=== PATIENT | female | born 1980 | race Caucasian/White ===

== ENCOUNTER 2016-07-31 12:06 | Emergency (ER) | payer MEDICARE, MEDICAID ==
[~2016-07-31] VITALS: Ht 167.6 cm; Wt 143.6 kg
[~2016-07-31 12:06] MED LIST: ADV250INH IH; CITA20TA11 PO; INSU100I SUBQ; INSU100I13 SUBQ; OMEP20CA11 PO; PRAV20TA2 PO
[2016-07-31 12:18] VITALS: BP 140/85; PULSE 61; RESP 16; O2SAT 95
[2016-07-31] MEDS ORDERED: SUCR1TAB PO (12:22)
--- NOTE | 2016-07-31 14:30 | ED.REPORT ---
HPI-Extremity Problem Upper Date of Service Jul 31, 2016 ED Provider: Sen Hollingsworth MD 35 year old female presents to the ER complaining of a year of right elbow pain , worsening today. She has been seen for similar in the past and was given a brace which she claims is ineffective. Pain is exacerbated by lifting, and range of motion. Patient does not voice any further medical complaints. Nursing Notes Stated Complaint: RT ELBOW PAIN Chief Complaint: Extremity Trauma Nursing Notes Reviewed: Yes Allergies: Coded Allergies: Sulfa (Sulfonamide Antibiotics) (Verified Allergy, Mild, hives, 07/31/16) Scheduled Citalopram (Citalopram) 20 Mg Tablet 20 MG PO DAILY Insulin Aspart (NovoLOG U-100 Pen) 100 Unit/Ml Insuln.pen 6 UNITS [id number] QAM Insulin Glargine (Lantus U100 Solostar Insulin Pen) 100 Unit/1 Ml Insuln.pen 70 UNITS [id number] QAM Omeprazole (Omeprazole) 20 Mg Capsule.dr 40 MG PO DAILY Pravastatin (Pravastatin) 20 Mg Tablet 20 MG PO HS Sucralfate (Sucralfate) 1 Gm Tablet 1 GM PO QID Scheduled PRN Fluticasone/Salmeterol (Advair 250-50 Diskus) 60 Puff/Inh Disk 1 PUFFS IH DAILY PRN PRN For Wheezing General Time Seen by MD: 14:07 Chief Complaint Elbow injury right Hx Obtained From: Patient Arrived By: Walk-in Onset Occurred: More than a week ago... (>6 months) Symptom Duration: Since onset Caused by: Mechanism unknown Context: Occurred at: Home injury Location: : Elbow right Quality: Painful Severity: Current: Mild Severity: Maximum: Moderate Pertinent Negative: Pt denies other symptoms Exacerbated by: Range of motion, Extension, Movement Pertinent Negative: Relieved by nothing Similar Sx Previous: Yes Past Medical History Past Medical History Notes: PCP: Dr. Melendez Past Medical History Right Tennis Elbow Past Surgical History none reported Smoking History Smoker Current Status UNK Social History Alcohol Use: Denies alcohol use Drug Use: Denies drug use Ambulatory Status Independent Review of Systems Constitutional: Denies: Chills, Fever Musculoskeletal: Reports: Joint pain (Right Elbow), Denies: Back pain, Extremity pain, Lumbar pain, Neck pain, Thoracic pain Complete sys rev & neg: except as marked. Physical Exam Initial Vital Signs Vital Signs (First) Date Time Temp Pulse Resp B/P Pulse Ox O2 Delivery O2 Flow Rate FiO2 07/31/16 12:18 36.4 61 16 140/85 95 Room Air Initial VS: Reviewed General/Constitutional: Well-developed, Well-nourished Head / Eyes: Atraumatic, Normocephalic Neck: Supple, Non-tender, Full range of motion Lower Extremities: Vascular intact, Neuro intact, No swelling, No tenderness Skin: Warm, Dry, No cyanosis Neurologic: Alert, Oriented, Nonfocal Upper Extremity / MS: Full range of motion, Neurologic intact, Vascular intact Right Elbow: Positive: Tenderness present... (Lateral epicondyle) Wrist / Hand: Atraumatic, Inspection NL, Full range of motion, No swelling, No erythema, Non-tender, No deformity, Neurologic intact, Vascular intact, No compartment syndrome, No clubbing/cyanosis Re-Eval/Medical Decision Med Decision/Clinical Course 35-year-old female complaining of right elbow pain times 1 year. She was diagnosed with tennis elbow in the past and had an injection that did not help. She has tenderness over her right lateral epicondyle. Strength is 5 out of 5 right upper extremity is neurovascularly intact. I agree with diagnosis of tennis elbow. She is advised to ice, rice and follow-up with primary doctor for possible injection. Return precautions Given. Re-Evaluation/Progress : Time of Eval: 14:37 Re-Evaluation/Progress Note: Discussed physical examination findings and plan to discharge. Patient is amenable to the plan. Return precautions given. All other questions addressed. Counseled Regarding: Diagnosis, Need for follow-up, When/why to return to ED Discharge & Departure Impression: Primary Impression: Tennis elbow Disposition: Home Discharge Condition All VS Reviewed: Yes Condition: Stable Patient Instructions: Tennis Elbow (DC), Tennis Elbow Exercises (GEN) Additional Instructions: You have Tennis Elbow. Treat with ice three times daily, 20 minutes at a time. Take Tylenol as directed for pain. No heavy lifting. Call your primary care provider to arrange a follow-up appointment if symptoms do not improve. Return to the ER if you develop worsening or uncontrollable pain, or other concerning symptoms. Referrals: Yinka Melendez DO (PCP) Scribe Attestation Portions of this note were transcribed by Ramana Mcginnis. I, Dr. Hollingsworth, personally performed the history, physical exam and medical decision-making; I reviewed and confirmed the accuracy of the information in the transcribed note. Signed by: Qamar Guzman, 07/31/2016 - 14:40 copies to: Yinka Melendez Ben M MD Jul 31, 2016 14:30 RAMANA MCGINNIS Jul 31, 2016 14:35
[2016-07-31 14:45] VITALS: BP 136/82; PULSE 60; RESP 18; O2SAT 96
== END 2016-07-31 14:50 | disposition home or self-care (01) ==
LOC: SED 12:06
DX: M77.11 Lateral epicondylitis, right elbow (principal); Z79.4 Long term (current) use of insulin; Z88.2 Allergy status to sulfonamides

== ENCOUNTER 2016-09-12 19:22 | Emergency (ER) | payer MEDICARE, MEDICAID ==
[~2016-09-12] VITALS: Ht 167.6 cm; Wt 146.8 kg
[~2016-09-12 19:22] MED LIST changes: +SUCR1TAB PO
[2016-09-12 19:24] VITALS: BP 145/87; PULSE 108; RESP 16; O2SAT 96
--- NOTE | 2016-09-12 19:36 | ED.REPORT ---
HPI-General Illness Date of Service Sep 12, 2016 ED Provider: Hiral Alva History of Present Illness: at urgent care this am, given oral decadron this am for breathing treatment. Being treated for pneumonia given prednisone and azithromycin. BS up at 571 when checked earlier. does not have a sliding scale. . Takes metformin 2000 mg a day and novolog 30 units and 70 units lantus and 30 of novolog with every meal and placed on victozia .6 units, andellin is primary care. now bs is 361 Nursing Notes Stated Complaint: HIGH BLOOD SUGAR Chief Complaint: General Complaint Nursing Notes Reviewed: Yes Allergies: Coded Allergies: Sulfa (Sulfonamide Antibiotics) (Verified Allergy, Mild, hives, 09/12/16) Scheduled Citalopram (Citalopram) 20 Mg Tablet 20 MG PO DAILY Insulin Aspart (NovoLOG U-100 Pen) 100 Unit/Ml Insuln.pen 6 UNITS [id number] QAM Insulin Glargine (Lantus U100 Solostar Insulin Pen) 100 Unit/1 Ml Insuln.pen 70 UNITS [id number] QAM Omeprazole (Omeprazole) 20 Mg Capsule.dr 40 MG PO DAILY Pravastatin (Pravastatin) 20 Mg Tablet 20 MG PO HS Sucralfate (Sucralfate) 1 Gm Tablet 1 GM PO QID Scheduled PRN Fluticasone/Salmeterol (Advair 250-50 Diskus) 60 Puff/Inh Disk 1 PUFFS IH DAILY PRN PRN For Wheezing General Time Seen by MD: 19:31 Chief Complaint Other (high blood sugar) Hx Obtained From: Patient Sudden in Onset?: No Past Medical History Past Medical History Notes: PCP: Dr. Melendez Past Medical History Right Tennis Elbow Reports: Diabetes mellitus (since she was 18 years old) Past Surgical History none reported Smoking History Smoker Current Status UNK Social History Alcohol Use: Denies alcohol use Drug Use: Denies drug use Other Social History: Ambulatory Status Independent Review of Systems Full Review of Systems Constitutional: Denies: Fatigue Ears / Nose / Throat: Denies: Ear drainage left, Ear drainage right Cardiovascular: Denies: Chest pain Musculoskeletal: Denies: Back pain Allergy / Immune: Denies: Allergic reaction Physical Exam Vital Signs Vital Signs Date Time Temp Pulse Resp B/P Pulse Ox O2 Delivery O2 Flow Rate FiO2 09/12/16 19:24 36.2 108 16 145/87 96 Room Air Initial VS: Reviewed, Vital signs normal General/Constitutional: Well-developed, Well-nourished Abdomen / GI: Soft, Non-tender, No guarding, No rebound, No distention Psychiatric: Mood/affect normal, Behavior normal, Normal thought content General/Constitutional: Awake, Alert, No acute distress, Well appearing, Well developed, Well hydrated, Well nourished, Cooperative, Not toxic appearing Head / Eyes: Atraumatic, Normocephalic, PERRL, EOMI ENT: Atraumatic, Airway patent, Mucous membranes moist, Pharynx NL Respiratory / Chest: Atraumatic, Breath sounds NL, Breath sounds = bilat, No respiratory distress Cardiovascular: Heart rate NL, Regular rhythm, Heart sounds NL, No gallop Re-Eval/Medical Decision Med Decision/Clinical Course 36 year old female presents to the ER with increase in blood sugar after taking decadron this am for breathing issues. Has a 5 day sourse of prednisone. Patient is reporting breathing better since decadron this am. also with hx of asthma. No sign of COPD or cellulitis. Education proved. Instructed patient to increase humolog. Discharge & Departure Primary Impression: Elevated blood sugar level Disposition: Home Additional Instructions: Your blood sugar is elevated because of the prednisone that you are taking. You also have asthma and pneumonia. Those things can also increase your blood sugar. Increase your novolog to an additional 10 units in the am and 15 units at lunch time and 5 units in the dinner time. It is most important that you test your blood sugar after you take the medication. If you are dropping too much, have a egg salad sandwhich. Please discuss with Dr. Melendez if a glucose monitoring machine that automatically checks your blood sugar would be helpful. As you improve, you will not need the additional insulin. REturn with any concerns. Referrals: Yinka Melendez DO (PCP) EDSupervising Provider for APC: Juan Dudley MD copies to: Yinka Melendez Sue ARNP Sep 12, 2016 19:36
== END 2016-09-12 20:05 | disposition home or self-care (01) ==
LOC: SED 19:22
DX: E11.65 Type 2 diabetes mellitus with hyperglycemia (principal); T38.0X5A Adverse effect of glucocorticoids and synthetic analogues, initial encounter; J45.909 Unspecified asthma, uncomplicated; Z79.4 Long term (current) use of insulin; Z79.84 Long term (current) use of oral hypoglycemic drugs; Z88.2 Allergy status to sulfonamides
CPT/HCPCS: 82948; 94640; 99283; G0463; J7613; J7620

== ENCOUNTER 2016-09-15 11:48 | Inpatient (IN) | payer MEDICARE, MEDICAID ==
[2016-09-15] VITALS (8 sets, daily range): BP systolic 137–146; BP diastolic 73–88; PULSE 75–130; RESP 14–22; O2SAT 94–97
[~2016-09-15] VITALS: Ht 167.6 cm; Wt 143.7 kg
[2016-09-15 12:46] LABS: BASOPHILS % (AUTO) 0.1 % (0-3); EOSINOPHILS % (AUTO) 0.1 % (0-5); Mean Corpuscular Hemoglobin 27.4 pg (27.0-35.0); Mean Corpuscular Volume 81.5 fL (81-100); NEUTROPHILS % (AUTO) 82.7 % (40-74); Platelet Count 236 bil/L (150-400)
--- NOTE | 2016-09-15 12:53 | ED.REPORT ---
HPI-Dyspnea / Wheezing Date of Service Sep 15, 2016 ED Provider: Abimbola Marks MD Patient is a 36-year-old woman with history of asthma, type II diabetes insulin using, hyperlipidemia, anxiety, presents with worsening shortness of breath. She describes having symptoms for at least 3 weeks, she was seen in urgent care 3 days ago with a diagnosed her with pneumonia and mild intermittent asthma exacerbation and prescribed her azithromycin and prednisone which she says she has been taking. Since then she states that her dyspnea has been getting worse. Currently she describes having chest tightness, lightheadedness and dizziness, polyuria, elevated blood sugars up to the 600s, and most recently this morning being in the 400s. She claims to be having to use the bathroom every 10 minutes where she "dribbles" but does not have any pain associated. She denies any fevers, but does say she has chills and cold sweats that are not normal for her. Additionally she states there is orthopnea, which is new over the last 3 weeks. Nursing Notes Stated Complaint: SOB Chief Complaint: Respiratory Distress Allergies: Coded Allergies: Sulfa (Sulfonamide Antibiotics) (Verified Allergy, Mild, hives, 09/12/16) Scheduled Citalopram (Citalopram) 20 Mg Tablet 20 MG PO DAILY Insulin Aspart (NovoLOG U-100 Pen) 100 Unit/Ml Insuln.pen 6 UNITS [id number] QAM Insulin Glargine (Lantus U100 Solostar Insulin Pen) 100 Unit/1 Ml Insuln.pen 70 UNITS [id number] QAM Omeprazole (Omeprazole) 20 Mg Capsule.dr 40 MG PO DAILY Pravastatin (Pravastatin) 20 Mg Tablet 20 MG PO HS Sucralfate (Sucralfate) 1 Gm Tablet 1 GM PO QID Scheduled PRN Fluticasone/Salmeterol (Advair 250-50 Diskus) 60 Puff/Inh Disk 1 PUFFS IH DAILY PRN PRN For Wheezing General Time Seen by MD: 12:07 Chief Complaint Chest pain, Shortness of breath Past Medical History Past Medical History Notes: PCP: Dr. Melendez Past Medical History Menorrhagia with irregular cycle Varicose veins Polycystic ovaries Congenital single renal cyst Intrinsic asthma Suicide and self inflicted injury by cutting Major depressive disorder Migraines Sinusitis Sleep apnea TMJ arthralgia GERD Reports: Diabetes mellitus Past Surgical History Reports: Cholecystectomy Family History Brother has asthma Father renal cyst, hypertension, hyperlipidemia. Mother coronary artery disease Sister with asthma and anxiety Smoking History Current Every Day Smoker (12 PPD x12yrs) Social History Alcohol Use: Denies alcohol use Drug Use: Denies drug use Other Social History: Ambulatory Status Independent Review of Systems Complete sys rev & neg: except as marked. Physical Exam General: Laying in bed, elevated effort to breathe, morbidly obese HEENT: Normocephalic, atraumatic, EOMI grossly, mucous membranes moist, no signs of oral thrush, neck supple without lymphadenopathy, Cardiovascular: Tachycardic, regular rhythm, no clicks murmurs rubs, peripheral pulses 2/4 equal bilaterally Pulmonary: Diffuse moderate-severe inspiratory and expiratory wheeze, scattered rhonchi. Conversational dyspnea. Abdominal: Soft to palpation, bowel sounds present 4, no hepatosplenomegaly. Negative rebound. Extremities: No edema appreciated. No tenderness, asymmetry. No calf tenderness Neuro: Neurologically grossly intact, strength is equal bilaterally upper and lower extremities. MSK: Able to move extremities on their own volition, strength 5 out of 5 equal bilaterally to upper and lower extremities. Initial Vital Signs Vital Signs (First) Date Time Temp Pulse Resp B/P Pulse Ox O2 Delivery O2 Flow Rate FiO2 09/15/16 12:00 36.7 130 22 145/84 95 Room Air 09/15/16 12:29 3 Initial VS: Reviewed Interpretation & Diagnostics Lab Results Interpretation Result Diagram: 09/15/16 1239 09/15/16 1239 Test 09/15/16 12:39 09/15/16 14:15 09/15/16 14:31 White Blood Count 15.0th/mm3 (3.8-10.1) Red Blood Count 5.08mil/mm3 (3.90-5.20) Hemoglobin 13.9g/dL (12.0-15.6) Hematocrit 41.4% (35.0-46.0) Mean Corpuscular Volume 81.5fL (81-100) Mean Corpuscular Hemoglobin 27.4pg (27.0-35.0) Mean Corpuscular Hemoglobin Concent 33.6% (32.0-37.0) Red Cell Distribution Width 13.8% (12.3-15.4) Platelet Count 236bil/L (150-400) Neutrophils (%) (Auto) 82.7% (40-74) Lymphocytes (%) (Auto) 11.8% (14-46) Monocytes (%) (Auto) 5.0% (4-12) Eosinophils (%) (Auto) 0.1% (0-5) Basophils (%) (Auto) 0.1% (0-3) Sodium Level 132mEq/L (134-144) Potassium Level 3.3mEq/L (3.5-5.2) Chloride Level 96mEq/L (97-108) Carbon Dioxide Level 17mmol/L (18-29) Blood Urea Nitrogen 14mg/dL (6-20) Creatinine 0.65mg/dL (0.57-1.00) Estimat Glomerular Filtration Rate 148mL/min (>59) Glucose Level 355mg/dL (60-99) Lactic Acid Level 1.6mmol/L (0.4-2.0) Calcium Level 8.6mg/dL (8.5-10.1) Total Bilirubin 0.2mg/dL (0.0-1.2) Aspartate Amino Transf (AST/SGOT) 12U/L (0-50) Alanine Aminotransferase (ALT/SGPT) 16U/L (0-32) Alkaline Phosphatase 86U/L (25-150) Troponin T < 0.010ug/L (0.0-0.011) Pro-B-Type Natriuretic Peptide 9.12pg/mL (0-130) Total Protein 6.6g/dL (6.4-8.4) Albumin 3.8g/dL (3.4-5.0) Procalcitonin 0.06ng/mL (0.00-0.08) Urine Color Yellow (YELLOW) Urine Appearance Hazy (CLEAR,HAZY) Urine pH 5.5 (5.0-8.0) Urine Specific [place] 1.025 (1.003-1.035) Urine Protein Negativemg/dL (NEG,TRACE) Urine Glucose (UA) 1000mg/dL (NEGATIVE) Urine Ketones 40mg/dL (NEGATIVE) Urine Occult Blood Negative (NEGATIVE) Urine Nitrite Negative (NEGATIVE) Urine Bilirubin Negative (NEGATIVE) Urine Urobilinogen Normalmg/dL (NORMAL) Urine Leukocyte Esterase Negative (NEGATIVE) Urine RBC 0-2/hpf (0-2) Urine WBC 0-5/hpf (0-5) Urine Epithelial Cells Moderate/hpf (NONE-MOD) Urine Crystals None seen (NONE SEEN) Urine Bacteria Moderate/hpf (NONE-FEW) Urine Hyaline Casts None/lpf (NONE) Urine Granular Casts None seen (NONE SEEN) Urine Waxy Casts None seen (NONE SEEN) Urine Red Blood Cell Casts None seen (NONE SEEN) Urine White Blood Cell Casts None seen (NONE SEEN) Urine Mucus None seen (None Seen) Urine Trichomonas None seen (NONE SEEN) Urine Yeast None (NONE SEEN) Urinalysis Comment None Urine Culture Reflexed Indicated Lab Results Interpretation: Leukocytosis with left shift Hyponatremia Hypochloremia Hypokalemia Decreased serum bicarbonate Anion gap 19 Hyperglycemia Negative urine analysis ECG Interpretation ECG Interpretation: Rate 107, sinus tachycardia "Sinus or ectopic atrial tachycardia, repolarization abnormality suggests ischemia, diffuse leads, borderline ST elevation, anterior leads." CT interval 153 QTC 390. Normal axis X-Ray Chest Interpretation Chest Xray Interpretation: IMPRESSION: Negative chest. No acute cardiopulmonary process is evident. Dictated by: Gregg Varela M.D. on 09/15/2016 at 12:26 CT Chest Interpretation IMPRESSION: 1. No pulmonary emboli. 2. Mild bronchial wall thickening and areas of centrilobular groundglass attenuation are suspicious for bronchitis with possible reactive airway disease. Hypersensitivity pneumonitis may also have this appearance. Please correlate clinically. 3. Right lower lobe ground glass nodules. Three-month followup CT of the chest with contrast is recommended. 4. Hepatic steatosis. 5. Rounded area of unusual enhancement within the lateral segment of the left hepatic lobe may represent transient hepatic arterial difference, focal area of fatty sparing, or potentially a liver mass. A dedicated liver MRI or CT with intravenous contrast is recommended. 6. Hyperdense superior left renal cyst is not adequately evaluated. 7. Enlarged spleen. 8. Possible esophagitis. Study type: Chest CT w contrast Interpretation / Wet Read by: Interpret - Radiologist Re-Eval/Medical Decision Med Decision/Clinical Course Patient was evaluated and initial concern was for possible pneumonia, status asthmaticus, bronchitis, viral respiratory infection, pneumonia, pulmonary embolism, myocardial infarction, congestive heart failure, urinary tract infection, and DKA. Evaluation was negative for pulmonary embolism, laboratory results did not suggest bacterial infection, chest x-ray did not show any focus of pneumonia, pro-calcitonin was negative, BNP was very low. CT did reveal signs suspicious for bronchitis with reactive airway disease. Clinically she remained essentially unchanged since presentation after receiving Solu-Medrol, magnesium, IV fluids, ceftriaxone, azithromycin, and DuoNeb. She remained on oxygen while in the emergency department, 3 L, maintaining her in the mid 90s. Given her duration of symptoms, and unresponsiveness to treatment both outpatient and here in the emergency department, decision was made along with the patient to admit her for ongoing management of status asthmaticus. Laboratory findings were discussed with patient, imaging results were discussed with patient and explained, as well as the need for ongoing treatment. Patient stated understanding and agreement. Discharge & Departure Impression: Primary Impression: Respiratory failure Chronicity: acute Respiratory failure complication: hypoxia Qualified Code : J96.01 - Acute respiratory failure with hypoxia Additional Impression: Status asthmaticus, intrinsic Disposition: ADMITTED TO HOSPITAL Discharge Condition All VS Reviewed: Yes Condition: Improved Referrals: Yinka Melendez DO (PCP) Attending Statement 36-year-old woman with increasing asthmatic wheeze as well as orthopnea failing outpatient treatment. Significant inspirational expiration always continues throughout her emergency department stay despite aggressive treatment with fluids nebs and steroids magnesium. At this point has failed outpatient treatment will be admitted for additional asthma management and additional workup to see if underlying etiology can be elucidated no evidence of acute bacterial pneumonia heart failure myocardial infarction or pulmonary embolism at this time. Respiratory viral panel is pending. Agree with documentation as above copies to: Yinka Melendez Noah M DO Sep 15, 2016 12:53 Abimbola Marks MD Sep 15, 2016 16:52
[2016-09-15] MEDS ORDERED: 0.9% Sodium Chloride 1,000 ML IV ONE ×2 (13:01→14:00)
[2016-09-15] MEDS ORDERED: cefTRIAXone Inj 2,000 MG in Dextrose 5% Minibag Plus 50 ML IV ONE (13:05)
[2016-09-15] MEDS ORDERED: Magnesium Sulf 2 Gm/50mL Water 2 GM in IV Premix 1 EACH IV ONE (13:05)
[2016-09-15] MEDS ORDERED: MethylprednisoLONE Sodium Succinate 62.5 mg/mL 2 mL Inj IVPUSH ONE (13:05)
[2016-09-15] MEDS ORDERED: Azithromycin Inj 500 MG in Dextrose 5% w/Vial Mate 250 ML IV ONE (13:05)
--- NOTE | 2016-09-15 13:28 | DRSVH ---
PROCEDURE: X-RAY CHEST, TWO VIEWS ([id number]) INDICATIONS: SHORTNESS OF BREATH TECHNIQUE: 2 views of the chest were acquired. COMPARISON: [facility], CR, XR CHEST 2VW, 08/27/2016, 15:00. FINDINGS: Surgical changes and devices: None. Lungs and pleura: No pleural effusions or pneumothorax. Lungs are clear. Mediastinum: Mediastinal contours are normal. Heart size is normal. Bones and chest wall: No suspicious bony abnormalities. Soft tissues appear unremarkable. IMPRESSION: Negative chest. No acute cardiopulmonary process is evident. Dictated by: Gregg Varela M.D. on 09/15/2016 at 12:26 Approved by: Gregg Varela M.D. on 09/15/2016 at 12:26
[2016-09-15 13:37] LABS: TROPONIN T < 0.010 ug/L (0.0-0.011)
[2016-09-15 15:08] LABS: APPEARANCE,URINE HAZY (CLEAR,HAZY); COLOR,URINE YELLOW (YELLOW); OCCULT BLOOD,URINE NEGATIVE (NEGATIVE); PH,URINE 5.5 (5.0-8.0); UROBILINOGEN,URINE NORMAL (NORMAL)
--- NOTE | 2016-09-15 15:19 | DRSVH ---
PROCEDURE: CT ANGIO CHEST PULMONARY EMBOLISM ([id number]) INDICATIONS: dyspnea TECHNIQUE: After the administration of intravenous contrast, 2 mm thick sections acquired from the pulmonary api lucas to the posterior costophrenic angles. 3-dimensional maximum intensity projection (MIP) coronal a nd sagittal reformats were then acquired through the thorax. For radiation dose reduction, the follo wing was used: automated exposure control, adjustment of mA and/or kV according to patient size. COMPARISON: [facility], CT, ABD/PELVIS W/CON (PNL), 05/07/2010, 19:07. FINDINGS: Image quality: Diagnostic. Pulmonary arteries: Pulmonary arteries are normal in size, and demonstrate no intraluminal filling d efects to suggest central pulmonary embolism. Lungs and pleura: No focal consolidation, effusion, or pneumothorax is present. There is moderate pr ominence of the perihilar bronchial ding. Vague centrilobular ground glass attenuation is appreciat ed within the lung apices. There is no lung mass. There is at least a single ground glass nodule id entified within the posterior right costophrenic angle measuring 5 x 7 mm (image 103, series 4). A s eparate groundglass nodule measuring 4 mm also is present (image 107, series 4). Mediastinum: Heart size is normal, without pericardial effusion. Multiple small mediastinal lymph n odes are present. No shlomo lymphadenopathy is evident. Thoracic aorta is normal in caliber and enha ncement. Mild prominence of the wall of the esophagus is noted. Bones and chest wall: No suspicious bony lesions. Ribs and thoracic spine appear intact throughout. Thyroid gland is not enlarged. No axillary or supraclavicular adenopathy. Abdomen: The imaged portions of the upper abdomen demonstrate multiple cysts involving the upper port ion of the left kidney, not adequately evaluated an exophytic nodular structure along the superior ma rgin of the left kidney measures 2.5 x 1.8 cm, which is slightly larger on the current study and is n oted to demonstrate increased density, measuring approximately 60 Hounsfield units. The liver is hyp odense when compared to the spleen. Within the lateral segment of the left hepatic lobe, there is a rounded vague area of enhancement that measures up to 4.4 cm in diameter. There may be scattered sma ll hepatic cysts. The spleen is enlarged. IMPRESSION: 1. No pulmonary emboli. 2. Mild bronchial wall thickening and areas of centrilobular groundglass attenuation are suspicious for bronchitis with possible reactive airway disease. Hypersensitivity pneumonitis may also have thi s appearance. Please correlate clinically. 3. Right lower lobe ground glass nodules. Three-month followup CT of the chest with contrast is rec ommended. 4. Hepatic steatosis. 5. Rounded area of unusual enhancement within the lateral segment of the left hepatic lobe may repre sent transient hepatic arterial difference, focal area of fatty sparing, or potentially a liver mass. A dedicated liver MRI or CT with intravenous contrast is recommended. 6. Hyperdense superior left renal cyst is not adequately evaluated. 7. Enlarged spleen. 8. Possible esophagitis. Dictated by: Gregg Varela M.D. on 09/15/2016 at 14:03 Approved by: Gregg Varela M.D. on 09/15/2016 at 14:17
[2016-09-15] MEDS ORDERED: Ondansetron 2 mg/mL 2 mL Inj IVPUSH PRN (16:20)
[2016-09-15] MEDS ORDERED: Polyethylene Glycol (PEG) 17 Gm Powder PO PRN (16:20)
[2016-09-15] MEDS ORDERED: Alum-Mag Hydrox-Simeth 30 mL Suspension PO PRN (16:20)
[2016-09-15] MEDS ORDERED: Albuterol-Ipratropium 3 mL Inhalation Solution NEB SCH (16:30)
[2016-09-15] MEDS ORDERED: INSULIN ASPART 6 UNIT SUBCUTA079 SCH (16:50)
[2016-09-15] MEDS ORDERED: Albuterol 2.5 mg/3 mL Inhalation Solution NEB PRN (16:50)
[2016-09-15] MEDS ORDERED: Insulin Human REGular 300 Unit/3 mL Inj SUBQ SCH (17:00)
[2016-09-15] MEDS ORDERED: MELO7.5O PO (17:08)
[2016-09-15] MEDS ORDERED: ACYC400T2 PO (17:08)
[2016-09-15] MEDS ORDERED: OMEP40CA36 PO (17:08)
[2016-09-15] MEDS ORDERED: LIRA0.6P SQ (17:08)
[2016-09-15] MEDS ORDERED: ZIT250 PO (17:08)
[2016-09-15] MEDS ORDERED: PRED50TA PO (17:08)
[2016-09-15] MEDS ORDERED: METF500T4 PO (17:08)
[2016-09-15] MEDS ORDERED: MELO-259 PO (17:10)
[2016-09-15] MEDS ORDERED: ALBU8.5H2 INHALATION (17:10)
[2016-09-15] MEDS: Insulin LISPRO High-Dose Scale SUBQ SCH ×2 (18:27→22:25)
--- NOTE | 2016-09-15 19:35 | PCM.HPMED ---
Subjective Date of Service Sep 15, 2016 Primary Provider: Admitting Physician: Henry Amaya MD Primary Care Physician: Yinka Melendez DO Attending Physician: Henry Amaya MD Admit Status: Full Admit, Admit to Green Team Chief Complaint: Shortness of breath History of Present Illness: The patient is a 36-year-old morbidly obese white female with a history of asthma, type II diabetes mellitus on insulin since 2002, hyperlipidemia and anxiety who began having shortness of breath 3 weeks ago. She went to urgent care 3 days ago and was diagnosed with pneumonia and mild intermittent asthma exacerbation and was prescribed azithromycin and prednisone which she has been taking. He states the prednisone was 50 mg a day which she decided to take and to divided doses because after she took her first 50 mg her sugar shot up to 671. She has been taking azithromycin 250 mg by mouth daily. Since being seen and treated in urgent care she states that her dyspnea had been getting worse. She also described having chest tightness, lightheadedness and dizziness. Patient also has had polyuria, polydipsia and her blood sugars have been in the 400s and 600s. Recently she has been having to use a bathroom every 10 minutes where she "dribbles" but does not have any pain associated with it. She has had urinary tract infections in the past and this feels much different. Patient has no fevers, however she does say that she has had chills and cold sweats that are not normal for her. She also has had some orthopnea which is new over the last 3 weeks. When her shortness of breath got quite severe today she called her primary care doctor who advised her to call 911. Patient called 911 and was taken to [facility] emergency room and was evaluated by Abimbola Alvarez who stated that the patient had increasing asthmatic wheezing as well as orthopnea failing outpatient treatment. Patient had significant respiratory difficulties throughout her emergency department stay despite aggressive treatment with fluids, nebulizers, steroids and magnesium therapies. Therefore, we decided that the patient would be admitted to the hospitalist service for further evaluation and treatment. Review of Systems: General: Patient states that she has always been large since and her mother confirms that she was approximated 10 pound baby. HEENT: Patient has no headache, patient has no diplopia, patient has noticed a change in her vision recently, as it has become more blurry. Patient has no problems with her nose or throat. However, she has had bilateral myringotomy tubes placed approximately ago by Dr. Yinka Wu. Patient has no known dental problems. Patient has no pharyngitis or history of thrush. Patient does have gingivitis. Neck: Patient has no stiffness in the neck. Patient has no lymphadenopathy. Patient has no other problems with their neck. Pulmonary: Patient has increasing shortness of breath as per history of present illness. She has no significant cough, no expectoration of sputum. Patient has no pleurisy. Patient has no chest pain at present time. However, she had some chest pain prior to admission which is now gone away. It was described more as a chest tightness.. Patient has a history of asthma and continues to smoke one half a pack per day. Cardiovascular: Patient has no chest pain at present time. However, patient did have chest tightness prior to admission. Patient has no history of heart murmur. Patient has no palpitations. Patient has no history of myocardial infarction. Patient has no history of coronary artery disease that she is aware of. Gastrointestinal: Patient has no history of hepatitis A, B or C. Patient has no history of peptic ulcer disease. Patient did have some gastric upset caused by meloxicam which she took for "tennis elbow". Patient has no history of gastroesophageal reflux disease. Patient has a history of nausea and vomiting and diarrhea "all night" a couple of nights ago. She has not had any problems since.. Patient has no history of hematemesis, hematochezia, or melena. Patient has no history of colitis. Renal: Patient, and her mother, believe that she has multiple cyst on her kidneys possibly polycystic kidney disease. No history of kidney stones. Genitourinary: Patient has no history of dysuria. However, she does have urinary frequency since her blood sugars have been very high and stress incontinence. Patient has no previous history of genitourinary problems. Musculoskeletal: Patient has no history of muscular skeletal problems. Neurologic: Patient has no history of stroke, no history of seizure, no history of TIA. Psychiatric: Patient has a history of severe depression. She also has had 1 suicide attempt by cutting. She states she is not a "cutter". She no longer has any suicidal ideation. The remainder of the entire review of systems was reviewed with patient and is as mentioned above otherwise negative. Allergies Coded Allergies: Sulfa (Sulfonamide Antibiotics) (Verified Allergy, Mild, hives, 09/12/16) sulfamethoxazole (Verified Allergy, Unknown, 09/15/16) trimethoprim (Verified Allergy, Unknown, 09/15/16) Home Medications Scheduled Citalopram (Citalopram) 20 Mg Tablet 20 MG PO DAILY Insulin Aspart (NovoLOG U-100 Pen) 100 Unit/Ml Insuln.pen 6 UNITS [id number] QAM Insulin Glargine (Lantus U100 Solostar Insulin Pen) 100 Unit/1 Ml Insuln.pen 70 UNITS [id number] QAM Omeprazole (Omeprazole) 20 Mg Capsule.dr 40 MG PO DAILY Pravastatin (Pravastatin) 20 Mg Tablet 20 MG PO HS Sucralfate (Sucralfate) 1 Gm Tablet 1 GM PO QID Scheduled PRN Fluticasone/Salmeterol (Advair 250-50 Diskus) 60 Puff/Inh Disk 1 PUFFS IH DAILY PRN PRN For Wheezing . However, patient states that she is noncompliant with this medication and does not take it. PMH Menorrhagia with irregular cycle Patient is sexually active and is not using any control. She has had one miscarriage and is 1, para 0, M 1 Varicose veins Polycystic ovaries Congenital single renal cyst Intrinsic asthma Suicide and self inflicted injury by cutting Major depressive disorder Migraines Sinusitis and otitis with placement of myringotomy tubes in both ears proximally one year ago by Dr. Yinka Wu. Sleep apnea TMJ arthralgia GERD Diabetes mellitus diagnosed in 1988 and insulin-dependent since 2002 Surgical History Cholecystectomy Skin graft surgery the left index finger at the age of 6. Tendon repair of the right ankle Bilateral myringotomies by Dr. Yinka Wu approximately 1 year ago. Family History Brother has asthma and apparently polycystic disease of the kidneys as well. Father has renal cyst, hypertension, hyperlipidemia. Mother has coronary artery disease Sister has asthma and anxiety Social History Hx Alcohol Use: Yes (The patient drank alcohol prior to being diagnosed with diabetes. However, she did not have a drinking problem.) Hx Substance Use: No Smoking Status: Current Every Day Smoker (The patient continues to smoke one half pack per day despite having asthma.) Living Arrangement: with Family (The patient lives with her mother who is also a diabetic.) Additional Information The patient grew up in [place]. She has smoked marijuana in the past but does not do any currently sees methamphetamine for 6 months but stopped because she saw what it was doing to people. She has had Chlamydia in the past and was treated for it. Patient is 1, para 0, M 1. Patient currently has a boyfriend and is sexually active and is not using any control. Her boyfriend lives in his own place. Patient lives with her mother. Exam Vital Signs Vital Sign - Last Date Time Temp Pulse Resp B/P Pulse Ox O2 Delivery O2 Flow Rate FiO2 09/15/16 17:42 36.7 92 18 138/85 94 Nasal Cannula 2.00 Exam General: Patient is in no apparent distress at present time. She is laying supine with her head elevated approximately 30-45. HEENT: Head is atraumatic and normocephalic. Eyes: Pupils are equally round and reactive to light and accommodation. Extraocular muscles are intact. Sclera are white, anicteric. Subconjunctival mucosa is pink. Ears and nose are unremarkable. Oropharynx: There is no mucosal lesions, there is no thrush, there is no pharyngitis. Neck: Is supple, there are no nodes, or masses or tenderness. Chest: Is clear to auscultation and percussion. There are no rales, rhonchi, wheezes or rubs. Heart: Rate, rhythm is regular. There is no murmur, rub or gallop. Abdomen: Good bowel sounds are present. Abdomen is soft, nontender, no organomegaly or masses were appreciated. Extremities: Are symmetrical and well perfused. There is no edema, there is no cellulitis, no rash. Neurologic: There are no focal neurological deficits. Cranial nerves II through XII are intact. There are no sensory or motor deficits. Psychiatric: Patients mood is calm and shows no sign of agitation. Genital: Deferred Rectal: Deferred Lab and Diagnostics Result Diagram: 09/15/16 1239 09/15/16 1239 Microbiology Urine cultures are pending. X-Rays, CTs and MRIs PROCEDURE: CT ANGIO CHEST PULMONARY EMBOLISM ([id number]) INDICATIONS: dyspnea TECHNIQUE: After the administration of intravenous contrast, 2 mm thick sections acquired from the pulmonary apices to the posterior costophrenic angles. 3-dimensional maximum intensity projection (MIP) coronal and sagittal reformats were then acquired through the thorax. For radiation dose reduction, the following was used: automated exposure control, adjustment of mA and/or kV according to patient size. COMPARISON: [facility], CT, ABD/PELVIS W/CON (PNL), 05/07/2010 , 19:07. FINDINGS: Image quality: Diagnostic. Pulmonary arteries: Pulmonary arteries are normal in size, and demonstrate no intraluminal filling defects to suggest central pulmonary embolism. Lungs and pleura: No focal consolidation, effusion, or pneumothorax is present. There is moderate prominence of the perihilar bronchial ding. Vague centrilobular ground glass attenuation is appreciated within the lung apices. There is no lung mass. There is at least a single ground glass nodule identified within the posterior right costophrenic angle measuring 5 x 7 mm ( image 103, series 4). A separate groundglass nodule measuring 4 mm also is present (image 107, series 4). Mediastinum: Heart size is normal, without pericardial effusion. Multiple small mediastinal lymph nodes are present. No shlomo lymphadenopathy is evident. Thoracic aorta is normal in caliber and enhancement. Mild prominence of the wall of the esophagus is noted. Bones and chest wall: No suspicious bony lesions. Ribs and thoracic spine appear intact throughout. Thyroid gland is not enlarged. No axillary or supraclavicular adenopathy. Abdomen: The imaged portions of the upper abdomen demonstrate multiple cysts involving the upper portion of the left kidney, not adequately evaluated an exophytic nodular structure along the superior margin of the left kidney measures 2.5 x 1.8 cm, which is slightly larger on the current study and is noted to demonstrate increased density, measuring approximately 60 Hounsfield units. The liver is hypodense when compared to the spleen. Within the lateral segment of the left hepatic lobe, there is a rounded vague area of enhancement that measures up to 4.4 cm in diameter. There may be scattered small hepatic cysts. The spleen is enlarged. IMPRESSION: 1. No pulmonary emboli. 2. Mild bronchial wall thickening and areas of centrilobular groundglass attenuation are suspicious for bronchitis with possible reactive airway disease. Hypersensitivity pneumonitis may also have this appearance. Please correlate clinically. 3. Right lower lobe ground glass nodules. Three-month followup CT of the chest with contrast is recommended. 4. Hepatic steatosis. 5. Rounded area of unusual enhancement within the lateral segment of the left hepatic lobe may represent transient hepatic arterial difference, focal area of fatty sparing, or potentially a liver mass. A dedicated liver MRI or CT with intravenous contrast is recommended. 6. Hyperdense superior left renal cyst is not adequately evaluated. 7. Enlarged spleen. 8. Possible esophagitis. Dictated by: Gregg Varela M.D. on 09/15/2016 at 14:03 Approved by: Gregg Varela M.D. on 09/15/2016 at 14:17 PROCEDURE: X-RAY CHEST, TWO VIEWS ([id number]) INDICATIONS: SHORTNESS OF BREATH TECHNIQUE: 2 views of the chest were acquired. COMPARISON: [facility], CR, XR CHEST 2VW, 08/27/2016, 15:00. FINDINGS: Surgical changes and devices: None. Lungs and pleura: No pleural effusions or pneumothorax. Lungs are clear. Mediastinum: Mediastinal contours are normal. Heart size is normal. Bones and chest wall: No suspicious bony abnormalities. Soft tissues appear unremarkable. IMPRESSION: Negative chest. No acute cardiopulmonary process is evident. Dictated by: Gregg Varela M.D. on 09/15/2016 at 12:26 Approved by: Gregg Varela M.D. on 09/15/2016 at 12:26 Assessment & Plan The patient is a 36-year-old morbidly obese white female with a history of asthma, type II diabetes mellitus on insulin since 2002, hyperlipidemia and anxiety who began having shortness of breath 3 weeks ago. She went to urgent care 3 days ago and was diagnosed with pneumonia and mild intermittent asthma exacerbation and was prescribed azithromycin and prednisone which she has been taking. He states the prednisone was 50 mg a day which she decided to take and to divided doses because after she took her first 50 mg her sugar shot up to 671. She has been taking azithromycin 250 mg by mouth daily. Since being seen and treated in urgent care she states that her dyspnea had been getting worse. She also described having chest tightness, lightheadedness and dizziness. Patient also has had polyuria, polydipsia and her blood sugars have been in the 400s and 600s. Recently she has been having to use a bathroom every 10 minutes where she "dribbles" but does not have any pain associated with it. She has had urinary tract infections in the past and this feels much different. Patient has no fevers, however she does say that she has had chills and cold sweats that are not normal for her. She also has had some orthopnea which is new over the last 3 weeks. When her shortness of breath got quite severe today she called her primary care doctor who advised her to call 911. Patient called 911 and was taken to [facility] emergency room and was evaluated by Abimbola Alvarez who stated that the patient had increasing asthmatic wheezing as well as orthopnea failing outpatient treatment. Patient had significant respiratory difficulties throughout her emergency department stay despite aggressive treatment with fluids, nebulizers, steroids and magnesium therapies. Therefore, we decided that the patient would be admitted to the hospitalist service for further evaluation and treatment. # Acute on chronic respiratory failure, present at the time of admission. Active - She has history of asthma and now has an acute exacerbation possibly secondary to bronchitis as suggested by CT scan. - Hypoxia secondary to above - We will continue Rocephin started in the emergency room. - Continue IV azithromycin which was started in the emergency room. - We will change prednisone to Solu-Medrol. 125 mg of Solu-Medrol was given in the emergency room. We will continue Solu-Medrol 60 mg IV every 6 hours. - We will give SVN treatments with DuoNeb SVN every 6 hours and albuterol SVN every 2 hours when necessary. - Magnesium was given in the emergency room. # Type II diabetes mellitus uncontrolled, present at the time of admission. Active and ongoing - This is likely due to prednisone therapy. - We will continue home Lantus insulin and NovoLog will be replaced with Humalog. - We will check blood sugars before meals and at bedtime and provide aggressive sliding scale insulin coverage. - Patient to be on a diabetic diet. # Tobacco use despite active asthma. Present at the time of admission - Patient counseled on the cessation of tobacco. She agrees that she needs to quit. - We will try to quit when she has recovered. # Morbid obesity, present at this time of admission. Ongoing - Patient's BMI is 51.1 kg/m - Encouraged patient to seek possible gastric bypass surgery as an outpatient. - Continue diabetic diet. # Menorrhagia with irregular menstrual cycles - Patient is 1, para 0, M1 - Patient was encouraged to see an HEALTH DIRECTOR doctor for the evaluation of her irregular menses and possibly control. - Possible polycystic ovarian disease. 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 # History of major depression - Patient denies any suicidal ideation at present time. - Patient has a history of suicide attempt by cutting in the past. # Obstructive sleep apnea - Patient is running on having a sleep evaluation on 09/28/2016 Disposition: Patient is expected to be here more than 2 nights further evaluation and treatment of the above problems. Therefore, the patient was admitted as an inpatient. Pain Evaluation: Adequate Pain Control GI Prophylaxis: Proton Pump Inhibitor VTE Prophylaxis: Sub-Q Enoxaparin Resuscitation Status: CPR: Attempt Resuscitation Henry Amaya MD Sep 15, 2016 19:35
[2016-09-15] MEDS: Sucralfate 1,000 mg Tablet PO SCH (19:50)
[2016-09-15] MEDS: Albuterol-Ipratropium 3 mL Inhalation Solution NEB SCH (20:49)
[2016-09-15] MEDS: MethylprednisoLONE Sodium Succinate 62.5 mg/mL 2 mL Inj IVPUSH SCH (22:24)
[2016-09-16] VITALS (13 sets, daily range): BP systolic 125–149; BP diastolic 74–81; PULSE 71–103; RESP 16–22; O2SAT 69–96
[2016-09-16] MEDS: MethylprednisoLONE Sodium Succinate 62.5 mg/mL 2 mL Inj IVPUSH SCH ×3 (04:22→16:43)
[2016-09-16] MEDS: Insulin LISPRO High-Dose Scale SUBQ SCH ×5 (04:22→21:23)
--- NOTE | 2016-09-16 05:53 | NUR ---
Respiratory, Sugars: Pt on 2L NC the beginning of the shift with sats in the upper 90s; CPOX in place for hx of SERINA. RT placed pt on RA and pt has maintained sats 93-95%. Lung sounds wheezy, pt felt breathing was "tight" around 0400 and pt had a PRN neb with improvement in symptoms. Blood sugar at HS 355, insulin per sliding scale. At 0330, sugar was 264; only 2 additional units administered at that time. Viral PCR came back positive for Adenovirus, pt on droplet/contact precautions; pt aware of reason for isolation.
[2016-09-16 06:10] LABS: BASOPHILS % (AUTO) 0.1 % (0-3); EOSINOPHILS % (AUTO) 0 % (0-5); MONOCYTES % (AUTO) 2.5 % (4-12); Mean Corpuscular Hemoglobin 27.4 pg (27.0-35.0); Mean Corpuscular Volume 80.9 fL (81-100); NEUTROPHILS % (AUTO) 85.7 % (40-74); Platelet Count 258 bil/L (150-400)
[2016-09-16] MEDS: Pantoprazole 40 mg ER24 Tablet PO SCH (06:46)
[2016-09-16] MEDS: Sucralfate 1,000 mg Tablet PO SCH ×4 (06:46→21:24)
[2016-09-16 06:50] LABS: Magnesium 2.2 mg/dL (1.6-2.6)
[2016-09-16] MEDS: Albuterol-Ipratropium 3 mL Inhalation Solution NEB SCH ×4 (07:17→20:31)
[2016-09-16] MEDS: Fluticasone-Salmererol 250-50 Inhaler INHALATION PRN (08:56)
[2016-09-16] MEDS: cefTRIAXone Inj 2,000 MG in Dextrose 5% Minibag Plus 50 ML IV SCH (08:57)
[2016-09-16] MEDS: Insulin GLARgine 100 Unit/mL Syringe SUBQ SCH (09:12)
--- NOTE | 2016-09-16 10:14 | DRSVH ---
PROCEDURE: X-RAY CHEST, TWO VIEWS ([id number]) INDICATIONS: [place] Pneumonia vs CHF/Hypoxia TECHNIQUE: 2 views of the chest were acquired. COMPARISON: [facility], CT, CT ANGIO CHEST PE, 09/15/2016, 14:44. [facility] , CR, XR CHEST 2VW, 09/15/2016, 12:59. FINDINGS: Surgical changes and devices: None. Lungs and pleura: No pleural effusions or pneumothorax. Lungs are clear. Mediastinum: Mediastinal contours are normal. Heart size is normal. Bones and chest wall: No suspicious bony abnormalities. Soft tissues appear unremarkable. IMPRESSION: No acute cardiopulmonary disease identified by plain film radiograph. Dictated by: Wallace Mulligan RRA Interpreted: Vikki Salazar MD on 09/16/2016 at 10:12 Transcribed by: TEJA on 09/16/2016 at 10:13 Approved by: Vikki Salazar MD, PhD on 09/16/2016 at 11:28
[2016-09-16] MEDS: Azithromycin Inj 500 MG in Dextrose 5% w/Vial Mate 250 ML IV SCH (10:54)
[2016-09-16] MEDS: 0.9% NaCl + KCl 20 mEq/L 1,000 ML IV SCH ×2 (11:04→21:23)
--- NOTE | 2016-09-16 13:58 | NUR ---
Social Work-initial assessment: Data:See initial assessment. Pt is a 36 y/o female who was admitted on 09/15/16 for status asthmaticus per H&P. Pt's insurance is [employer] and [employer] supplemental and PCP is Yinka Melendez MD. EMR Reviewed. Pt's readmission score is 4-high risk. SW met with pt at bedside to discuss discharge planning, SW role explained. Pt is alert and oriented x3. Pt resides at home with mother Concepcion Arnold in a single level home with ramp to enter where pt remains independent with basic ADLs. Pt uses no DME at baseline and drives POV. Pt has no HH or SNF history. Pt has not completed DPOA/ advanced directive and SW provided paperwork to review and complete. Pt has no [place] [facility] care or [place] benefits. Pt was discussed in rounds and is currently receiving IVABX, will likely be here 2 more days. Pt's mother to provide transport home at discharge. SW provided phone number and plan on white board in room. SW will continue to follow. Assessment:Pt who resides at home with mother and is independent at baseline. Plan:Pt to likely discharge home whe medically stable, rule out IV abx needs. SW will continue to follow. VAHE Jade Addendum: 09/16/16 at 1403 by JW ROBERT SS Amended: Links added.
--- NOTE | 2016-09-16 15:14 | NUR ---
BREATHING/BLOOD SUGARS P- Patient has had hyperglycemia and shortness of breath with activity. Positive for Adenovirus. I- Insulin coverage provided per protocol for BG of 265 and 375, (Patient on IV steroids). Patient given scheduled NEB treatment by RT, on 2L NC E-O2 saturation mid 90's, MD aware of blood sugars, will taper steroids, radiology scheduler in and did nutrition education.
--- NOTE | 2016-09-16 16:43 | NUR ---
spiritual care; pt request brief visit. pt in good spirits, discussed her medical condition and also ways family cares for one another. Feeling much better and expressed she is "doin' okay"
--- NOTE | 2016-09-16 22:44 | PCM.PNMED ---
Subjective Date of Service Sep 16, 2016 Subjective Patient is breathing better when she lies still. However she still gets very short of breath when she is getting up to the bathroom. Overall she is feeling a little bit better. She has no other new complaints. Exam Vital Signs Vital Sign - Last Date Time Temp Pulse Resp B/P Pulse Ox O2 Delivery O2 Flow Rate FiO2 09/16/16 20:43 36.4 103 18 149/78 96 Room Air 09/16/16 13:03 2.00 Intake and Output 09/15/16 09/15/16 09/16/16 Cumulative From/Thru 15:00 23:00 07:00 09/15/16 12:00 - 09/15/16 18:47 Intake Total 1500 ml 400 ml 1900 ml Output Total 200 ml 300 ml 500 ml Balance 1300 ml 100 ml 1400 ml Intake Oral 400 ml 400 ml IV Total 1500 ml 1500 ml Output Urine Total 200 ml 300 ml 500 ml # Voids 1 1 # Bowel Movements 0 0 Exam General: Patient is in no apparent distress at present time. She is laying supine with her head elevated approximately 30-45. HEENT: Head is atraumatic and normocephalic. Eyes: Pupils are equally round and reactive to light and accommodation. Extraocular muscles are intact. Sclera are white, anicteric. Subconjunctival mucosa is pink. Ears and nose are unremarkable. Oropharynx: There is no mucosal lesions, there is no thrush, there is no pharyngitis. Neck: Is supple, there are no nodes, or masses or tenderness. Chest: Is significant for decreased wheezing. However, there is decreased breath sounds bilaterally. Heart: Rate, rhythm is regular. There is no murmur, rub or gallop. Abdomen: Good bowel sounds are present. Abdomen is morbidly obese, soft, nontender, no organomegaly or masses were appreciated. Extremities: Are symmetrical and well perfused. There is no edema, there is no cellulitis, no rash. Neurologic: There are no focal neurological deficits. Cranial nerves II through XII are intact. There are no sensory or motor deficits. Psychiatric: Patients mood is calm and shows no sign of agitation. Genital: Deferred Rectal: Deferred Lab and Diagnostics Result Diagram: 09/16/16 0540 09/16/16 0540 Microbiology Urine cultures are pending. X-Rays, CTs and MRIs PROCEDURE: CT ANGIO CHEST PULMONARY EMBOLISM ([id number]) INDICATIONS: dyspnea TECHNIQUE: After the administration of intravenous contrast, 2 mm thick sections acquired from the pulmonary apices to the posterior costophrenic angles. 3-dimensional maximum intensity projection (MIP) coronal and sagittal reformats were then acquired through the thorax. For radiation dose reduction, the following was used: automated exposure control, adjustment of mA and/or kV according to patient size. COMPARISON: [facility], CT, ABD/PELVIS W/CON (PNL), 05/07/2010 , 19:07. FINDINGS: Image quality: Diagnostic. Pulmonary arteries: Pulmonary arteries are normal in size, and demonstrate no intraluminal filling defects to suggest central pulmonary embolism. Lungs and pleura: No focal consolidation, effusion, or pneumothorax is present. There is moderate prominence of the perihilar bronchial ding. Vague centrilobular ground glass attenuation is appreciated within the lung apices. There is no lung mass. There is at least a single ground glass nodule identified within the posterior right costophrenic angle measuring 5 x 7 mm ( image 103, series 4). A separate groundglass nodule measuring 4 mm also is present (image 107, series 4). Mediastinum: Heart size is normal, without pericardial effusion. Multiple small mediastinal lymph nodes are present. No shlomo lymphadenopathy is evident. Thoracic aorta is normal in caliber and enhancement. Mild prominence of the wall of the esophagus is noted. Bones and chest wall: No suspicious bony lesions. Ribs and thoracic spine appear intact throughout. Thyroid gland is not enlarged. No axillary or supraclavicular adenopathy. Abdomen: The imaged portions of the upper abdomen demonstrate multiple cysts involving the upper portion of the left kidney, not adequately evaluated an exophytic nodular structure along the superior margin of the left kidney measures 2.5 x 1.8 cm, which is slightly larger on the current study and is noted to demonstrate increased density, measuring approximately 60 Hounsfield units. The liver is hypodense when compared to the spleen. Within the lateral segment of the left hepatic lobe, there is a rounded vague area of enhancement that measures up to 4.4 cm in diameter. There may be scattered small hepatic cysts. The spleen is enlarged. IMPRESSION: 1. No pulmonary emboli. 2. Mild bronchial wall thickening and areas of centrilobular groundglass attenuation are suspicious for bronchitis with possible reactive airway disease. Hypersensitivity pneumonitis may also have this appearance. Please correlate clinically. 3. Right lower lobe ground glass nodules. Three-month followup CT of the chest with contrast is recommended. 4. Hepatic steatosis. 5. Rounded area of unusual enhancement within the lateral segment of the left hepatic lobe may represent transient hepatic arterial difference, focal area of fatty sparing, or potentially a liver mass. A dedicated liver MRI or CT with intravenous contrast is recommended. 6. Hyperdense superior left renal cyst is not adequately evaluated. 7. Enlarged spleen. 8. Possible esophagitis. Dictated by: Gregg Varela M.D. on 09/15/2016 at 14:03 Approved by: Gregg Varela M.D. on 09/15/2016 at 14:17 PROCEDURE: X-RAY CHEST, TWO VIEWS ([id number]) INDICATIONS: SHORTNESS OF BREATH TECHNIQUE: 2 views of the chest were acquired. COMPARISON: [facility], CR, XR CHEST 2VW, 08/27/2016, 15:00. FINDINGS: Surgical changes and devices: None. Lungs and pleura: No pleural effusions or pneumothorax. Lungs are clear. Mediastinum: Mediastinal contours are normal. Heart size is normal. Bones and chest wall: No suspicious bony abnormalities. Soft tissues appear unremarkable. IMPRESSION: Negative chest. No acute cardiopulmonary process is evident. Dictated by: Gregg Varela M.D. on 09/15/2016 at 12:26 Approved by: Gregg Varela M.D. on 09/15/2016 at 12:26 PROCEDURE: X-RAY CHEST, TWO VIEWS ([id number]) INDICATIONS: Possibke Pneumonia vs CHF/Hypoxia TECHNIQUE: 2 views of the chest were acquired. COMPARISON: [facility], CT, CT ANGIO CHEST PE, 09/15/2016, 14:44. [facility], CR, XR CHEST 2VW, 09/15/2016, 12:59. FINDINGS: Surgical changes and devices: None. Lungs and pleura: No pleural effusions or pneumothorax. Lungs are clear. Mediastinum: Mediastinal contours are normal. Heart size is normal. Bones and chest wall: No suspicious bony abnormalities. Soft tissues appear unremarkable. IMPRESSION: No acute cardiopulmonary disease identified by plain film radiograph. Dictated by: Wallace NOEL Interpreted: Vikki Salazar MD on 09/16/2016 at 10:12 Transcribed by: TEJA on 09/16/2016 at 10:13 Approved by: Vikki Salazar MD, PhD on 09/16/2016 at 11:28 Assessment & Plan The patient is a 36-year-old morbidly obese white female with a history of asthma, type II diabetes mellitus on insulin since 2002, hyperlipidemia and anxiety who began having shortness of breath 3 weeks ago. She went to urgent care 3 days ago and was diagnosed with pneumonia and mild intermittent asthma exacerbation and was prescribed azithromycin and prednisone which she has been taking. He states the prednisone was 50 mg a day which she decided to take and to divided doses because after she took her first 50 mg her sugar shot up to 671. She has been taking azithromycin 250 mg by mouth daily. Since being seen and treated in urgent care she states that her dyspnea had been getting worse. She also described having chest tightness, lightheadedness and dizziness. Patient also has had polyuria, polydipsia and her blood sugars have been in the 400s and 600s. Recently she has been having to use a bathroom every 10 minutes where she "dribbles" but does not have any pain associated with it. She has had urinary tract infections in the past and this feels much different. Patient has no fevers, however she does say that she has had chills and cold sweats that are not normal for her. She also has had some orthopnea which is new over the last 3 weeks. When her shortness of breath got quite severe today she called her primary care doctor who advised her to call 911. Patient called 911 and was taken to [facility] emergency room and was evaluated by Abimbola Alvarez who stated that the patient had increasing asthmatic wheezing as well as orthopnea failing outpatient treatment. Patient had significant respiratory difficulties throughout her emergency department stay despite aggressive treatment with fluids, nebulizers, steroids and magnesium therapies. Therefore, we decided that the patient would be admitted to the hospitalist service for further evaluation and treatment. # Acute on chronic respiratory failure, present at the time of admission. Active - She has history of asthma and now has an acute exacerbation possibly secondary to bronchitis as suggested by CT scan. - Hypoxia secondary to above - We will continue Rocephin started in the emergency room. - Continue IV azithromycin which was started in the emergency room. - We will change prednisone to Solu-Medrol. 125 mg of Solu-Medrol was given in the emergency room. We will continue Solu-Medrol . However, we will decrease her dose from 60 mg IV every 6 hours to 40 mg IV every 8 hours. - We will give SVN treatments with DuoNeb SVN every 6 hours and albuterol SVN every 2 hours when necessary. - Magnesium was given in the emergency room. # Type II diabetes mellitus uncontrolled, present at the time of admission. Active and ongoing - This is likely due to prednisone therapy. - We will continue home Lantus insulin and NovoLog will be replaced with Humalog. - We will check blood sugars before meals and at bedtime and provide aggressive sliding scale insulin coverage. - Patient to be on a diabetic diet. # Tobacco use despite active asthma. Present at the time of admission - Patient counseled on the cessation of tobacco. She agrees that she needs to quit. - We will try to quit when she has recovered. # Morbid obesity, present at this time of admission. Ongoing - Patient's BMI is 51.1 kg/m - Encouraged patient to seek possible gastric bypass surgery as an outpatient. - Continue diabetic diet. # Menorrhagia with irregular menstrual cycles - Patient is 1, para 0, M1 - Patient was encouraged to see an [facility] doctor for the evaluation of her irregular menses and possibly control. - Possible polycystic ovarian disease. 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 # History of major depression - Patient denies any suicidal ideation at present time. - Patient has a history of suicide attempt by cutting in the past. # Obstructive sleep apnea - Patient is running on having a sleep evaluation on 09/28/2016 Disposition: Patient is legally to be here for another 24-48 hours for the continued evaluation and treatment of the above conditions. Pain Evaluation: Adequate Pain Control GI Prophylaxis: Proton Pump Inhibitor VTE Prophylaxis: Sub-Q Enoxaparin Resuscitation Status: CPR: Attempt Resuscitation Henry Amaya MD Sep 16, 2016 22:44
[2016-09-17] VITALS (10 sets, daily range): BP systolic 135–163; BP diastolic 72–85; PULSE 77–122; RESP 16–24; O2SAT 95–97
[2016-09-17] MEDS: MethylprednisoLONE Sodium Succinate 62.5 mg/mL 2 mL Inj IVPUSH SCH ×3 (00:27→16:54)
[2016-09-17] MEDS: Insulin LISPRO High-Dose Scale SUBQ SCH ×5 (02:59→22:27)
--- NOTE | 2016-09-17 06:29 | NUR ---
respiratory/BG SpO2 in mid 90s on RA even when sleeping. still has SOB with exertion, but pt states it's way better than admit. [employer] at HS. BG at HS wa 411; sliding scale insulin given. 3AM BG was 307; covered with 7 more units of Lispro.
[2016-09-17 06:55] LABS: BASOPHILS % (AUTO) 0.1 % (0-3); EOSINOPHILS % (AUTO) 0.1 % (0-5); MONOCYTES % (AUTO) 5.6 % (4-12); Mean Corpuscular Hemoglobin 27.4 pg (27.0-35.0); Mean Corpuscular Volume 82.1 fL (81-100); NEUTROPHILS % (AUTO) 82.6 % (40-74); Platelet Count 266 bil/L (150-400)
[2016-09-17 07:16] LABS: Magnesium 2.3 mg/dL (1.6-2.6)
[2016-09-17] MEDS: Sucralfate 1,000 mg Tablet PO SCH ×4 (07:16→21:06)
[2016-09-17] MEDS: 0.9% NaCl + KCl 20 mEq/L 1,000 ML IV SCH ×2 (07:16→18:40)
[2016-09-17] MEDS: Pantoprazole 40 mg ER24 Tablet PO SCH (07:16)
[2016-09-17] MEDS: Albuterol-Ipratropium 3 mL Inhalation Solution NEB SCH ×4 (07:38→22:15)
[2016-09-17] MEDS: Insulin GLARgine 100 Unit/mL Syringe SUBQ SCH (08:05)
[2016-09-17] MEDS: Fluticasone-Salmererol 250-50 Inhaler INHALATION PRN (08:10)
[2016-09-17] MEDS: cefTRIAXone Inj 2,000 MG in Dextrose 5% Minibag Plus 50 ML IV SCH (08:34)
[2016-09-17] MEDS: Azithromycin Inj 500 MG in Dextrose 5% w/Vial Mate 250 ML IV SCH (09:24)
--- NOTE | 2016-09-17 16:55 | NUR ---
SW - Readiness for Discharge Data: Pt is on day 2 of hospitalization for status asthmaticus. EMR reviewed. Per morning rounds pt is likely to discharge tomorrow, will finish IVABX tomorrow. Pt will discharge home via family in POV. No further needs assessed at this time. SW will continue to follow. Assessment: Pt who is independent at baseline. Plan: Pt likely to discharge home tomorrow with no needs. SW will continue to follow. VAHE Jade
--- NOTE | 2016-09-17 18:36 | NUR ---
Shift Pt calm and cooperative with care. Pt lungs improving with slight wheezing/rhonci at exertion, pt on RA. Pt now has some productive cough, encourage CDB. PT denies SOB, CP, NVD. Plan is for echo tomorrow and possibly d/c. Pt agreeable to plan, has no further questions/concerns. Call light within reach.
[2016-09-18] VITALS (12 sets, daily range): BP systolic 127–154; BP diastolic 77–87; PULSE 71–128; RESP 16–22; O2SAT 93–98
[2016-09-18] MEDS: 0.9% NaCl + KCl 20 mEq/L 1,000 ML IV SCH ×2 (04:48→17:32)
[2016-09-18] MEDS: Pantoprazole 40 mg ER24 Tablet PO SCH (05:38)
[2016-09-18] MEDS: Sucralfate 1,000 mg Tablet PO SCH ×4 (05:38→22:36)
[2016-09-18 05:49] LABS: BASOPHILS % (AUTO) 0.2 % (0-3); EOSINOPHILS % (AUTO) 0.1 % (0-5); MONOCYTES % (AUTO) 5.9 % (4-12); Mean Corpuscular Hemoglobin 27.3 pg (27.0-35.0); Mean Corpuscular Volume 82.4 fL (81-100); NEUTROPHILS % (AUTO) 76.7 % (40-74); Platelet Count 277 bil/L (150-400)
--- NOTE | 2016-09-18 06:15 | NUR ---
Respiratory Pt remains of RA this shift. Continuous pulse ox while pt asleep. Lung sounds decreased, expiratory wheezes noted. Pt having intermittent productive cough. Call light within reach, frequent rounding.
[2016-09-18 06:24] LABS: Magnesium 2.2 mg/dL (1.6-2.6)
[2016-09-18] MEDS: Fluticasone-Salmererol 250-50 Inhaler INHALATION PRN (07:49)
[2016-09-18] MEDS: predniSONE 20 mg Tablet PO SCH (07:51)
[2016-09-18] MEDS: Insulin GLARgine 100 Unit/mL Syringe SUBQ SCH (07:52)
[2016-09-18] MEDS: Insulin LISPRO High-Dose Scale SUBQ SCH ×4 (07:52→22:00)
[2016-09-18] MEDS: cefTRIAXone Inj 2,000 MG in Dextrose 5% Minibag Plus 50 ML IV SCH (08:43)
[2016-09-18] MEDS: Albuterol-Ipratropium 3 mL Inhalation Solution NEB SCH ×4 (08:45→19:58)
[2016-09-18] MEDS: Azithromycin Inj 500 MG in Dextrose 5% w/Vial Mate 250 ML IV SCH (09:27)
--- NOTE | 2016-09-18 10:38 | NUR ---
Home medications Pt stated she only has albuterol at home for her asthma. She states she uses this daily, every 4 hours. Pt does not have any maintenance asthma medication at this time.
--- NOTE | 2016-09-18 13:29 | NUR ---
Ambulation Pt desire to ambulate and get "fresh" air at approximately 1300. Pt just finished her nebulizer tx. Student nurse accompanied pt while ambulating for observation. Pt started to get SOB after walk, x1 loop in hallway. Pt developed dyspnea and tachy in the 160's. Immediately RN checked O2 sats(96% on RA) and HR in 160's. RN applied supplemental oxygen and monitored pt. Upon resting, pt HR has decreased to 98 and O2 remains at 96%. Oxygen removed. Pt states her headache has returned. Icepack provided for pain. Pt resting now. Pt agreeable to call RN if SOB returns or any difficulties/concerns she may have. Continued to frequently monitor pt.
--- NOTE | 2016-09-18 13:47 | PCM.PNMED ---
Subjective Date of Service Sep 17, 2016 Subjective Patient continues to feel better. Laying at rest however with any exercise she gets extremely short of breath when she is very concerned about this. Her mother at bedside states that she developed heart disease at 36 and wonders if her daughter may have the same thing. She has no other new complaints. Exam Vital Signs Vital Sign - Last Date Time Temp Pulse Resp B/P Pulse Ox O2 Delivery O2 Flow Rate FiO2 09/18/16 12:23 128 22 96 Room Air 09/18/16 11:24 36.5 134/77 09/16/16 13:03 2.00 Intake and Output 09/17/16 09/17/16 09/18/16 Cumulative From/Thru 15:00 23:00 07:00 09/15/16 12:00 - 09/18/16 06:54 Intake Total 2797 ml 1388 ml 00635 ml Output Total 500 ml 400 ml 4530 ml Balance 2297 ml 988 ml 6079 ml Intake Oral 1525 ml 360 ml 4830 ml IV Total 1272 ml 1028 ml 5779 ml Output Urine Total 500 ml 400 ml 4530 ml # Voids 3 # Bowel Movements 2 3 Exam General: Patient appears much more comfortable at rest today.. She is laying supine with her head elevated approximately 30-45. HEENT: Head is atraumatic and normocephalic. Eyes: Pupils are equally round and reactive to light and accommodation. Extraocular muscles are intact. Sclera are white, anicteric. Subconjunctival mucosa is pink. Ears and nose are unremarkable. Oropharynx: There is no mucosal lesions, there is no thrush, there is no pharyngitis. Neck: Is supple, there are no nodes, or masses or tenderness. Chest: Breath sounds are much clearer today. However, there is decreased breath sounds bilaterally. Heart: Rate, rhythm is regular. There is no new murmur, rub or gallop. Abdomen: Good bowel sounds are present. Abdomen is morbidly obese, soft, nontender, no organomegaly or masses were appreciated. Extremities: Are symmetrical and well perfused. There is no edema, there is no cellulitis, no rash. Neurologic: There are no focal neurological deficits. Cranial nerves II through XII are intact. There are no sensory or motor deficits. Psychiatric: Patients mood is calm and shows no sign of agitation. Genital: Deferred Rectal: Deferred Lab and Diagnostics Result Diagram: 09/18/16 [id number] Microbiology Urine cultures are pending. X-Rays, CTs and MRIs PROCEDURE: CT ANGIO CHEST PULMONARY EMBOLISM ([id number]) INDICATIONS: dyspnea TECHNIQUE: After the administration of intravenous contrast, 2 mm thick sections acquired from the pulmonary apices to the posterior costophrenic angles. 3-dimensional maximum intensity projection (MIP) coronal and sagittal reformats were then acquired through the thorax. For radiation dose reduction, the following was used: automated exposure control, adjustment of mA and/or kV according to patient size. COMPARISON: [facility], CT, ABD/PELVIS W/CON (PNL), 05/07/2010 , 19:07. FINDINGS: Image quality: Diagnostic. Pulmonary arteries: Pulmonary arteries are normal in size, and demonstrate no intraluminal filling defects to suggest central pulmonary embolism. Lungs and pleura: No focal consolidation, effusion, or pneumothorax is present. There is moderate prominence of the perihilar bronchial ding. Vague centrilobular ground glass attenuation is appreciated within the lung apices. There is no lung mass. There is at least a single ground glass nodule identified within the posterior right costophrenic angle measuring 5 x 7 mm ( image 103, series 4). A separate groundglass nodule measuring 4 mm also is present (image 107, series 4). Mediastinum: Heart size is normal, without pericardial effusion. Multiple small mediastinal lymph nodes are present. No shlomo lymphadenopathy is evident. Thoracic aorta is normal in caliber and enhancement. Mild prominence of the wall of the esophagus is noted. Bones and chest wall: No suspicious bony lesions. Ribs and thoracic spine appear intact throughout. Thyroid gland is not enlarged. No axillary or supraclavicular adenopathy. Abdomen: The imaged portions of the upper abdomen demonstrate multiple cysts involving the upper portion of the left kidney, not adequately evaluated an exophytic nodular structure along the superior margin of the left kidney measures 2.5 x 1.8 cm, which is slightly larger on the current study and is noted to demonstrate increased density, measuring approximately 60 Hounsfield units. The liver is hypodense when compared to the spleen. Within the lateral segment of the left hepatic lobe, there is a rounded vague area of enhancement that measures up to 4.4 cm in diameter. There may be scattered small hepatic cysts. The spleen is enlarged. IMPRESSION: 1. No pulmonary emboli. 2. Mild bronchial wall thickening and areas of centrilobular groundglass attenuation are suspicious for bronchitis with possible reactive airway disease. Hypersensitivity pneumonitis may also have this appearance. Please correlate clinically. 3. Right lower lobe ground glass nodules. Three-month followup CT of the chest with contrast is recommended. 4. Hepatic steatosis. 5. Rounded area of unusual enhancement within the lateral segment of the left hepatic lobe may represent transient hepatic arterial difference, focal area of fatty sparing, or potentially a liver mass. A dedicated liver MRI or CT with intravenous contrast is recommended. 6. Hyperdense superior left renal cyst is not adequately evaluated. 7. Enlarged spleen. 8. Possible esophagitis. Dictated by: Gregg Varela M.D. on 09/15/2016 at 14:03 Approved by: Gregg aVrela M.D. on 09/15/2016 at 14:17 PROCEDURE: X-RAY CHEST, TWO VIEWS ([id number]) INDICATIONS: SHORTNESS OF BREATH TECHNIQUE: 2 views of the chest were acquired. COMPARISON: [facility], CR, XR CHEST 2VW, 08/27/2016, 15:00. FINDINGS: Surgical changes and devices: None. Lungs and pleura: No pleural effusions or pneumothorax. Lungs are clear. Mediastinum: Mediastinal contours are normal. Heart size is normal. Bones and chest wall: No suspicious bony abnormalities. Soft tissues appear unremarkable. IMPRESSION: Negative chest. No acute cardiopulmonary process is evident. Dictated by: Gregg Varela M.D. on 09/15/2016 at 12:26 Approved by: Gregg Varela M.D. on 09/15/2016 at 12:26 PROCEDURE: X-RAY CHEST, TWO VIEWS ([id number]) INDICATIONS: Possibke Pneumonia vs CHF/Hypoxia TECHNIQUE: 2 views of the chest were acquired. COMPARISON: [facility], CT, CT ANGIO CHEST PE, 09/15/2016, 14:44. [facility], CR, XR CHEST 2VW, 09/15/2016, 12:59. FINDINGS: Surgical changes and devices: None. Lungs and pleura: No pleural effusions or pneumothorax. Lungs are clear. Mediastinum: Mediastinal contours are normal. Heart size is normal. Bones and chest wall: No suspicious bony abnormalities. Soft tissues appear unremarkable. IMPRESSION: No acute cardiopulmonary disease identified by plain film radiograph. Dictated by: Wallace Mulligan A Interpreted: Vikki Salazar MD on 09/16/2016 at 10:12 Transcribed by: TEJA on 09/16/2016 at 10:13 Approved by: Vikki Salazar MD, PhD on 09/16/2016 at 11:28 Assessment & Plan The patient is a 36-year-old morbidly obese white female with a history of asthma, type II diabetes mellitus on insulin since 2002, hyperlipidemia and anxiety who began having shortness of breath 3 weeks ago. She went to urgent care 3 days ago and was diagnosed with pneumonia and mild intermittent asthma exacerbation and was prescribed azithromycin and prednisone which she has been taking. He states the prednisone was 50 mg a day which she decided to take and to divided doses because after she took her first 50 mg her sugar shot up to 671. She has been taking azithromycin 250 mg by mouth daily. Since being seen and treated in urgent care she states that her dyspnea had been getting worse. She also described having chest tightness, lightheadedness and dizziness. Patient also has had polyuria, polydipsia and her blood sugars have been in the 400s and 600s. Recently she has been having to use a bathroom every 10 minutes where she "dribbles" but does not have any pain associated with it. She has had urinary tract infections in the past and this feels much different. Patient has no fevers, however she does say that she has had chills and cold sweats that are not normal for her. She also has had some orthopnea which is new over the last 3 weeks. When her shortness of breath got quite severe today she called her primary care doctor who advised her to call 911. Patient called 911 and was taken to [facility] emergency room and was evaluated by Abimbola Alvarez who stated that the patient had increasing asthmatic wheezing as well as orthopnea failing outpatient treatment. Patient had significant respiratory difficulties throughout her emergency department stay despite aggressive treatment with fluids, nebulizers, steroids and magnesium therapies. Therefore, we decided that the patient would be admitted to the hospitalist service for further evaluation and treatment. # Acute on chronic respiratory failure, present at the time of admission. Active - She has history of asthma and now has an acute exacerbation possibly secondary to bronchitis as suggested by CT scan. Respiratory PCR panel was positive for adenovirus so I suspect patient has an adenovirus infection plus or minus a secondary bacterial infection as patient appears to be responding to IV antibiotics and failed high-dose oral prednisone at home - Hypoxia secondary to above - We will continue Rocephin started in the emergency room. - Continue IV azithromycin which was started in the emergency room. - We have changed prednisone to Solu-Medrol. 125 mg of Solu-Medrol was given in the emergency room. We will continue Solu-Medrol through today . However, we will decrease her dose from 60 mg IV every 6 hours to 40 mg IV every 8 hours. Then we will start prednisone 30 mg by mouth every morning on 09/18/2016 - We will continue SVN treatments with DuoNeb SVN every 6 hours and albuterol SVN every 2 hours when necessary. - Magnesium was given in the emergency room. # Dyspnea with exertion - Patient and patient's mother concerned this could be cardiac in nature in addition to the above - We will check echocardiogram in a.m. # Type II diabetes mellitus uncontrolled, present at the time of admission. Active and ongoing now better controlled with tapering doses of steroids - This is likely due to prednisone and Solu-Medrol therapy. - We will continue home Lantus insulin and NovoLog will be replaced with Humalog. - We will check blood sugars before meals and at bedtime and provide aggressive sliding scale insulin coverage. - Patient to be on a diabetic diet. # Tobacco use despite active asthma. Present at the time of admission - Patient counseled on the cessation of tobacco. She agrees that she needs to quit. - We will try to quit when she has recovered. # Morbid obesity, present at this time of admission. Ongoing - Patient's BMI is 51.1 kg/m - Encouraged patient to seek possible gastric bypass surgery as an outpatient. - Continue diabetic diet. # Menorrhagia with irregular menstrual cycles - Patient is 1, para 0, M1 - Patient was encouraged to see an [employer] [facility] doctor for the evaluation of her irregular menses and possibly control. - Possible polycystic ovarian disease. 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 # History of major depression - Patient denies any suicidal ideation at present time. - Patient has a history of suicide attempt by cutting in the past. # Obstructive sleep apnea - Patient is running on having a sleep evaluation on 09/28/2016 Disposition: Patient is legally to be here for another 24-48 hours for the continued evaluation and treatment of the above conditions. Pain Evaluation: Adequate Pain Control GI Prophylaxis: Proton Pump Inhibitor VTE Prophylaxis: Sub-Q Enoxaparin Resuscitation Status: CPR: Attempt Resuscitation Henry Amaya MD Sep 18, 2016 13:47
--- NOTE | 2016-09-18 17:50 | DRSVH ---
[facility] [address] [place] [address] Echocardiogram Report Name: AVINASH FREEMAN te: 09/18/2016 Height: 66 in Hospital Exam Location: [facility] Weight: 317 lb Gender: Female BSA: 2.4 m2 : 1980 Age: 36 yrs BP: 148/ 87 mmHg Reason For Study: SOB Ordering Physician: HOSPITALIST [facility] Performed By: Quinton Camacho Referring Physician: RICA PEREZ Interpretation Summary The left ventricle is normal in size, wall thickness, and systolic function without any focal wall motion abnormalities with the ejection fraction visually estimated to be 65-70%. Assessment of diastolic parameters indicates normal left ventricular diastolic function and normal filling pressures. The right ventricle is not well visualized but grossly appears normal in size with probable normal systolic function. Pulmonary artery pressures cannot be estimated because of the lack of a measurable TR jet velocity but the IVC suggests a low right atrial pressure of 3 mm Hg. Both atria are normal in size. There is no obvious significant valvular heart disease. Procedure: A two-dimensional transthoracic echocardiogram with color flow and Doppler was performed. The study quality was technically adequate. There is no prior echocardiogram noted for this patient. The patient was in normal sinus rhythm during the exam. Left Ventricle: The left ventricle is normal in size, wall thickness, and systolic function without any focal wall motion abnormalities. The ejection fraction is estimated to be 65-70%. Assessment of diastolic parameters indicates normal left ventricular diastolic function and normal filling pressures. Right Ventricle: The right ventricle is not well visualized. The right ventricle grossly appears normal in size with probable normal systolic function. Atria: Both atria are normal in size. The interatrial septum is intact with no evidence for an atrial septal defect. Mitral Valve: The mitral valve is grossly normal. There is no mitral regurgitation noted. Aortic Valve: The aortic valve is grossly normal. The aortic valve opens well. No aortic regurgitation is present. Tricuspid Valve: The tricuspid valve is normal. There is a trace or physiologic amount of tricuspid regurgitation. Pulmonary artery pressures cannot be estimated because of the lack of a measurable TR jet velocity. Pulmonic Valve: The pulmonic valve is not well seen, but is grossly normal. There is a trace or physiologic amount of pulmonic regurgitation. There is no significant valvular heart disease. Great Vessels: The aortic root is normal size. The dimensions of the ascending aorta are normal. The pulmonary artery is normal size. The IVC is of normal diameter and collapses greater than 50% with a sniff. This suggests a low right atrial pressure of 3 mm Hg. Pericardium/ Pleura There is no pericardial effusion. There is no pleural effusion. MMode/2D Measurements & Calculations LVIDd: 5.1 cm LA dimension: 2.3 cm RA long axis LVOT diam: 2.2 cm LVIDs: 3.3 cm Ao root diam FS: 36.3 % LA A2 area: 18.3 cm RA area EPSS: 0.55 cm LA A4 area: 19.5 cm asc Aorta Diam IVSd: 0.87 cm LA length (vol) : 11.8 cm LVPWd: 0.98 cm RA vol Ao Arch Diam (Prox LA vol: 64.4 ml : 25.9 ml Trans): 2.8 cm LA vol index RA : 10.6 mm2 : 26.5 ml/m2 LV ricketts. diameter/BSA LV sys. diameter/BSA TAPSE: 2.0 cm (cm/m^2): 2.1 (cm/m^2): 1.3 Doppler Measurements & Calculations Ao V2 max: 146.7 cm/secMV E max junaid MV E/A: 1.2 PA V2 max Ao max P.6 mmHg : 86.4 cm/sec Med Peak E' Junaid : 105.3 cm/sec Ao mean P.9 mmHg MV A max junaid PA mean PG LVOT Max Junaid : 70.3 cm/sec E/E' med: 11.0 : 2.3 mmHg : 120.7 cm/sec Lat Peak E' Junaid MEGHANN(I,D): 3.5 cm E/E' lat: 8.9 sev ratio: 0.91 E/e' average MV dec time: 0.15 sec Ao V2 mean LV V1 max PG PA V2 mean : 92.7 cm/sec : 70.0 cm/sec Ao V2 VTI LV V1 VTI: 22.5 cmPA pr(Accel) : -0.85 mmHg MEGHANN(V,D): 3.1 cm2 MEGHANN indexed to BSA (cm^2/m^2): 1.4 Reading Physician:05:50 PM
--- NOTE | 2016-09-18 18:41 | NUR ---
shift Pt continues to receive nebs for breathing. Pt has difficulty breathing with exertion, sats 96% on RA monitored via tele. Pt becomes SOB and tachycardic with walking/activity/exertion. Pt tearful during episodes, offered reassurance and comfort. Pt has frequent headaches, treating with cold wash cloth and tylenol. Pt received echo today and she is anxious to hear the results. Continue to monitor frequently, call light with in reach.
--- NOTE | 2016-09-18 23:53 | PCM.PNMED ---
Subjective Date of Service Sep 18, 2016 Subjective Patient states he tried to ambulate in the hallway today and became extremely short of breath fatigued her heart rate was found to be at 160. She is now exhausted and has a headache does not feel well. She still gets extremely short of breath just getting out of bed to the bathroom. She has not had her echocardiogram as of yet that was ordered today. Exam Vital Signs Vital Sign - Last Date Time Temp Pulse Resp B/P Pulse Ox O2 Delivery O2 Flow Rate FiO2 09/18/16 20:11 36.8 89 18 154/84 94 Room Air 09/16/16 13:03 2.00 Intake and Output 09/17/16 09/17/16 09/18/16 Cumulative From/Thru 15:00 23:00 07:00 09/15/16 12:00 - 09/18/16 06:54 Intake Total 2797 ml 1388 ml 06844 ml Output Total 500 ml 400 ml 4530 ml Balance 2297 ml 988 ml 6079 ml Intake Oral 1525 ml 360 ml 4830 ml IV Total 1272 ml 1028 ml 5779 ml Output Urine Total 500 ml 400 ml 4530 ml # Voids 3 # Bowel Movements 2 3 Exam General: Patient appears ill today after taking a walk.. She is laying supine with her head elevated approximately 30-45 and does not appear to be well.. HEENT: Head is atraumatic and normocephalic. Eyes: Pupils are equally round and reactive to light and accommodation. Extraocular muscles are intact. Sclera are white, anicteric. Subconjunctival mucosa is pink. Ears and nose are unremarkable. Oropharynx: There is no mucosal lesions, there is no thrush, there is no pharyngitis. Neck: Is supple, there are no nodes, or masses or tenderness. Chest: Breath sounds remain diminished with scattered diffuse expiratory wheezing. Heart: Rate, rhythm is regular. There is no new murmur, rub or gallop. Abdomen: Good bowel sounds are present. Abdomen is morbidly obese, soft, nontender, no organomegaly or masses were appreciated. Extremities: Are symmetrical and well perfused. There is no edema, there is no cellulitis, no rash. Neurologic: There are no focal neurological deficits. Cranial nerves II through XII are intact. There are no sensory or motor deficits. Psychiatric: Patients mood is calm and shows no sign of agitation. Genital: Deferred Rectal: Deferred Lab and Diagnostics Result Diagram: 09/18/[id number]/16529 Microbiology Urine cultures are pending. X-Rays, CTs and MRIs PROCEDURE: CT ANGIO CHEST PULMONARY EMBOLISM ([id number]) INDICATIONS: dyspnea TECHNIQUE: After the administration of intravenous contrast, 2 mm thick sections acquired from the pulmonary apices to the posterior costophrenic angles. 3-dimensional maximum intensity projection (MIP) coronal and sagittal reformats were then acquired through the thorax. For radiation dose reduction, the following was used: automated exposure control, adjustment of mA and/or kV according to patient size. COMPARISON: [facility], CT, ABD/PELVIS W/CON (PNL), 05/07/2010 , 19:07. FINDINGS: Image quality: Diagnostic. Pulmonary arteries: Pulmonary arteries are normal in size, and demonstrate no intraluminal filling defects to suggest central pulmonary embolism. Lungs and pleura: No focal consolidation, effusion, or pneumothorax is present. There is moderate prominence of the perihilar bronchial ding. Vague centrilobular ground glass attenuation is appreciated within the lung apices. There is no lung mass. There is at least a single ground glass nodule identified within the posterior right costophrenic angle measuring 5 x 7 mm ( image 103, series 4). A separate groundglass nodule measuring 4 mm also is present (image 107, series 4). Mediastinum: Heart size is normal, without pericardial effusion. Multiple small mediastinal lymph nodes are present. No shlomo lymphadenopathy is evident. Thoracic aorta is normal in caliber and enhancement. Mild prominence of the wall of the esophagus is noted. Bones and chest wall: No suspicious bony lesions. Ribs and thoracic spine appear intact throughout. Thyroid gland is not enlarged. No axillary or supraclavicular adenopathy. Abdomen: The imaged portions of the upper abdomen demonstrate multiple cysts involving the upper portion of the left kidney, not adequately evaluated an exophytic nodular structure along the superior margin of the left kidney measures 2.5 x 1.8 cm, which is slightly larger on the current study and is noted to demonstrate increased density, measuring approximately 60 Hounsfield units. The liver is hypodense when compared to the spleen. Within the lateral segment of the left hepatic lobe, there is a rounded vague area of enhancement that measures up to 4.4 cm in diameter. There may be scattered small hepatic cysts. The spleen is enlarged. IMPRESSION: 1. No pulmonary emboli. 2. Mild bronchial wall thickening and areas of centrilobular groundglass attenuation are suspicious for bronchitis with possible reactive airway disease. Hypersensitivity pneumonitis may also have this appearance. Please correlate clinically. 3. Right lower lobe ground glass nodules. Three-month followup CT of the chest with contrast is recommended. 4. Hepatic steatosis. 5. Rounded area of unusual enhancement within the lateral segment of the left hepatic lobe may represent transient hepatic arterial difference, focal area of fatty sparing, or potentially a liver mass. A dedicated liver MRI or CT with intravenous contrast is recommended. 6. Hyperdense superior left renal cyst is not adequately evaluated. 7. Enlarged spleen. 8. Possible esophagitis. Dictated by: Gregg Varela M.D. on 09/15/2016 at 14:03 Approved by: Gregg Varela M.D. on 09/15/2016 at 14:17 PROCEDURE: X-RAY CHEST, TWO VIEWS ([id number]) INDICATIONS: SHORTNESS OF BREATH TECHNIQUE: 2 views of the chest were acquired. COMPARISON: [facility], CR, XR CHEST 2VW, 08/27/2016, 15:00. FINDINGS: Surgical changes and devices: None. Lungs and pleura: No pleural effusions or pneumothorax. Lungs are clear. Mediastinum: Mediastinal contours are normal. Heart size is normal. Bones and chest wall: No suspicious bony abnormalities. Soft tissues appear unremarkable. IMPRESSION: Negative chest. No acute cardiopulmonary process is evident. Dictated by: Gregg Varela M.D. on 09/15/2016 at 12:26 Approved by: Gregg Varela M.D. on 09/15/2016 at 12:26 PROCEDURE: X-RAY CHEST, TWO VIEWS ([id number]) INDICATIONS: Possibke Pneumonia vs CHF/Hypoxia TECHNIQUE: 2 views of the chest were acquired. COMPARISON: [facility], CT, CT ANGIO CHEST PE, 09/15/2016, 14:44. [facility], CR, XR CHEST 2VW, 09/15/2016, 12:59. FINDINGS: Surgical changes and devices: None. Lungs and pleura: No pleural effusions or pneumothorax. Lungs are clear. Mediastinum: Mediastinal contours are normal. Heart size is normal. Bones and chest wall: No suspicious bony abnormalities. Soft tissues appear unremarkable. IMPRESSION: No acute cardiopulmonary disease identified by plain film radiograph. Dictated by: Wallace Mulligan A Interpreted: Vikki Salazar MD on 09/16/2016 at 10:12 Transcribed by: TEJA on 09/16/2016 at 10:13 Approved by: Vikki Salazar MD, PhD on 09/16/2016 at 11:28 Cardiac Echo Impressions Echocardiogram Report Name: AVINASH FREEMAN Da te: 09/18/2016 Height: 66 in Hospital Exam Location: [facility] Weight: 317 lb Gender: Female BSA: 2.4 m2 : 1980 Age: 36 yrs BP: 148/ 87 mmHg Reason For Study: SOB Ordering Physician: HOSPITALIST [facility] Performed By: Quinton Camacho Referring Physician: HENRY AMAYA Interpretation Summary The left ventricle is normal in size, wall thickness, and systolic function without any focal wall motion abnormalities with the ejection fraction visually estimated to be 65-70%. Assessment of diastolic parameters indicates normal left ventricular diastolic function and normal filling pressures. The right ventricle is not well visualized but grossly appears normal in size with probable normal systolic function. Pulmonary artery pressures cannot be estimated because of the lack of a measurable TR jet velocity but the IVC suggests a low right atrial pressure of 3 mm Hg. Both atria are normal in size. There is no obvious significant valvular heart disease. Assessment & Plan The patient is a 36-year-old morbidly obese white female with a history of asthma, type II diabetes mellitus on insulin since 2002, hyperlipidemia and anxiety who began having shortness of breath 3 weeks ago. She went to urgent care 3 days ago and was diagnosed with pneumonia and mild intermittent asthma exacerbation and was prescribed azithromycin and prednisone which she has been taking. He states the prednisone was 50 mg a day which she decided to take and to divided doses because after she took her first 50 mg her sugar shot up to 671. She has been taking azithromycin 250 mg by mouth daily. Since being seen and treated in urgent care she states that her dyspnea had been getting worse. She also described having chest tightness, lightheadedness and dizziness. Patient also has had polyuria, polydipsia and her blood sugars have been in the 400s and 600s. Recently she has been having to use a bathroom every 10 minutes where she "dribbles" but does not have any pain associated with it. She has had urinary tract infections in the past and this feels much different. Patient has no fevers, however she does say that she has had chills and cold sweats that are not normal for her. She also has had some orthopnea which is new over the last 3 weeks. When her shortness of breath got quite severe today she called her primary care doctor who advised her to call 911. Patient called 911 and was taken to [facility] emergency room and was evaluated by Abimbola Alvarez who stated that the patient had increasing asthmatic wheezing as well as orthopnea failing outpatient treatment. Patient had significant respiratory difficulties throughout her emergency department stay despite aggressive treatment with fluids, nebulizers, steroids and magnesium therapies. Therefore, we decided that the patient would be admitted to the hospitalist service for further evaluation and treatment. # Acute on chronic respiratory failure, present at the time of admission. Active - She has history of asthma and now has an acute exacerbation possibly secondary to bronchitis as suggested by CT scan. Respiratory PCR panel was positive for adenovirus, so I suspect patient has an adenovirus infection, plus or minus a secondary bacterial infection. As patient appears to be responding to IV antibiotics and failed high-dose oral prednisone at home - Hypoxia secondary to above - We will continue Rocephin started in the emergency room. - Continue IV azithromycin which was started in the emergency room. - We have changed prednisone to Solu-Medrol. 125 mg of Solu-Medrol was given in the emergency room. We decreased her dose from 60 mg IV every 6 hours to 40 mg IV every 8 hours. Then we started prednisone 30 mg by mouth every morning on 09/18/2016 - We will continue SVN treatments with DuoNeb SVN every 6 hours and albuterol SVN every 2 hours when necessary. - Magnesium was given in the emergency room. # Dyspnea with exertion quite severe with heart rate jumping up to 160 today with exertion and the hallway. Patient felt quite ill afterward. - Patient and patient's mother concerned this could be cardiac in nature in addition to the above - Echocardiogram fails to show any explanation for the dyspnea on exertion. Therefore, I believe it is due to the current pulmonary infection with exacerbation of asthma. # Type II diabetes mellitus uncontrolled, present at the time of admission. Active and ongoing now better controlled with tapering doses of steroids - This is likely due to prednisone and Solu-Medrol therapy. This will improve with tapering doses of steroids. - We will continue home Lantus insulin and NovoLog will be replaced with Humalog. - We will check blood sugars before meals and at bedtime and provide aggressive sliding scale insulin coverage. - Patient to be on a diabetic diet. # Tobacco use despite active asthma. Present at the time of admission - Patient counseled on the cessation of tobacco. She agrees that she needs to quit. - We will try to quit when she has recovered. # Morbid obesity, present at this time of admission. Ongoing - Patient's BMI is 51.1 kg/m - Encouraged patient to seek possible gastric bypass surgery as an outpatient. - Continue diabetic diet. # Menorrhagia with irregular menstrual cycles - Patient is 1, para 0, M1 - Patient was encouraged to see an [facility] doctor for the evaluation of her irregular menses and possibly control. - Possible polycystic ovarian disease. 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 # History of major depression - Patient denies any suicidal ideation at present time. - Patient has a history of suicide attempt by cutting in the past. # Obstructive sleep apnea - Patient is running on having a sleep evaluation on 09/28/2016 Disposition: Patient is legally to be here for another 24 hours for the continued evaluation and treatment of the above conditions. Pain Evaluation: Adequate Pain Control GI Prophylaxis: Proton Pump Inhibitor VTE Prophylaxis: Sub-Q Enoxaparin Resuscitation Status: CPR: Attempt Resuscitation Henry Amaya MD Sep 18, 2016 23:53
[2016-09-19] VITALS (7 sets, daily range): BP systolic 124–133; BP diastolic 64–77; PULSE 70–103; RESP 16–18; O2SAT 95–97
[2016-09-19] MEDS: 0.9% NaCl + KCl 20 mEq/L 1,000 ML IV SCH (05:54)
[2016-09-19 05:58] LABS: BASOPHILS % (AUTO) 0.1 % (0-3); EOSINOPHILS % (AUTO) 0.6 % (0-5); Mean Corpuscular Hemoglobin 27.8 pg (27.0-35.0); Mean Corpuscular Volume 82.4 fL (81-100); NEUTROPHILS % (AUTO) 55.3 % (40-74); Platelet Count 252 bil/L (150-400)
[2016-09-19] MEDS: Pantoprazole 40 mg ER24 Tablet PO SCH (05:59)
[2016-09-19] MEDS: Sucralfate 1,000 mg Tablet PO SCH ×2 (05:59→11:44)
--- NOTE | 2016-09-19 06:30 | NUR ---
Respiratory Pt lung sounds course, pt having productive cough, green and blood tinged sputum noted this AM. Pt remains on RA, oxygen sat in the 90's. No c/o SOB. Pt sleeping most of shift.
[2016-09-19] MEDS: Albuterol-Ipratropium 3 mL Inhalation Solution NEB SCH ×2 (07:19→11:29)
[2016-09-19] MEDS: Insulin LISPRO High-Dose Scale SUBQ SCH ×2 (08:00→12:27)
[2016-09-19] MEDS: Fluticasone-Salmererol 250-50 Inhaler INHALATION PRN (08:57)
[2016-09-19] MEDS: Insulin GLARgine 100 Unit/mL Syringe SUBQ SCH (08:58)
[2016-09-19] MEDS: predniSONE 20 mg Tablet PO SCH (08:59)
[2016-09-19] MEDS: cefTRIAXone Inj 2,000 MG in Dextrose 5% Minibag Plus 50 ML IV SCH (09:02)
[2016-09-19] MEDS: Azithromycin Inj 500 MG in Dextrose 5% w/Vial Mate 250 ML IV SCH (09:53)
--- NOTE | 2016-09-19 12:26 | PCM.DIMED ---
Discharge Instructions Date of Service Sep 19, 2016 Dates of Hospitalization Sep 15, 2016 at 16:59 Discharge Diagnosis Discharge Diagnosis Adenovirus Infection with Acute on Chronic Asthma with Bronchitis Diet Heart Healthy, Diabetic Activity No restrictions (The patient may resume usual activities gradually as tolerated) Call your provider Fever or Chills, Shortness of breath, Bleeding, Chest pain, Vomitting, Excessive diarrhea, Weakness (unilateral) Patient Instructions Follow-up Provider: Yinka Melendez DO Follow-up with PCP in: 1 week Henry Amaya MD Sep 19, 2016 12:26
[2016-09-19] MEDS ORDERED: CEFD300C3 PO (12:42)
[2016-09-19] MEDS ORDERED: IPRA3AMP NEB (12:42)
[2016-09-19] MEDS ORDERED: ADV250INH IH (12:42)
[2016-09-19] MEDS ORDERED: PRD5T PO (12:42)
--- NOTE | 2016-09-19 13:09 | NUR ---
Discharge Patient given discharge orders. Patient given medication list with written when next dose due. Patient IV removed fully intact and asymptomatic. Patient given informational packets and follow up instructions. Assisted in wheelchair to main entrance.
--- NOTE | 2016-09-20 01:02 | PCM.DC.MED ---
Discharge Summary Date of Service Sep 19, 2016 Dates of Hospitalization Date of Hospital Admission Sep 15, 2016 at 16:59 Date of Discharge: Sep 19, 2016 Providers: Admitting Physician: Henry Amaya MD Primary Care Physician: Yinka Melendez DO Attending Physician: Henry Amaya MD Diagnosis at Time of Discharge Diagnosis at Time of Discharge Adenovirus Infection with Acute on Chronic Asthma with Bronchitis Procedures XRay, CTs & MRIs PROCEDURE: CT ANGIO CHEST PULMONARY EMBOLISM ([id number]) INDICATIONS: dyspnea TECHNIQUE: After the administration of intravenous contrast, 2 mm thick sections acquired from the pulmonary apices to the posterior costophrenic angles. 3-dimensional maximum intensity projection (MIP) coronal and sagittal reformats were then acquired through the thorax. For radiation dose reduction, the following was used: automated exposure control, adjustment of mA and/or kV according to patient size. COMPARISON: [facility], CT, ABD/PELVIS W/CON (PNL), 05/07/2010 , 19:07. FINDINGS: Image quality: Diagnostic. Pulmonary arteries: Pulmonary arteries are normal in size, and demonstrate no intraluminal filling defects to suggest central pulmonary embolism. Lungs and pleura: No focal consolidation, effusion, or pneumothorax is present. There is moderate prominence of the perihilar bronchial ding. Vague centrilobular ground glass attenuation is appreciated within the lung apices. There is no lung mass. There is at least a single ground glass nodule identified within the posterior right costophrenic angle measuring 5 x 7 mm ( image 103, series 4). A separate groundglass nodule measuring 4 mm also is present (image 107, series 4). Mediastinum: Heart size is normal, without pericardial effusion. Multiple small mediastinal lymph nodes are present. No shlomo lymphadenopathy is evident. Thoracic aorta is normal in caliber and enhancement. Mild prominence of the wall of the esophagus is noted. Bones and chest wall: No suspicious bony lesions. Ribs and thoracic spine appear intact throughout. Thyroid gland is not enlarged. No axillary or supraclavicular adenopathy. Abdomen: The imaged portions of the upper abdomen demonstrate multiple cysts involving the upper portion of the left kidney, not adequately evaluated an exophytic nodular structure along the superior margin of the left kidney measures 2.5 x 1.8 cm, which is slightly larger on the current study and is noted to demonstrate increased density, measuring approximately 60 Hounsfield units. The liver is hypodense when compared to the spleen. Within the lateral segment of the left hepatic lobe, there is a rounded vague area of enhancement that measures up to 4.4 cm in diameter. There may be scattered small hepatic cysts. The spleen is enlarged. IMPRESSION: 1. No pulmonary emboli. 2. Mild bronchial wall thickening and areas of centrilobular groundglass attenuation are suspicious for bronchitis with possible reactive airway disease. Hypersensitivity pneumonitis may also have this appearance. Please correlate clinically. 3. Right lower lobe ground glass nodules. Three-month followup CT of the chest with contrast is recommended. 4. Hepatic steatosis. 5. Rounded area of unusual enhancement within the lateral segment of the left hepatic lobe may represent transient hepatic arterial difference, focal area of fatty sparing, or potentially a liver mass. A dedicated liver MRI or CT with intravenous contrast is recommended. 6. Hyperdense superior left renal cyst is not adequately evaluated. 7. Enlarged spleen. 8. Possible esophagitis. Dictated by: Gregg Varela M.D. on 09/15/2016 at 14:03 Approved by: Gregg Varela M.D. on 09/15/2016 at 14:17 PROCEDURE: X-RAY CHEST, TWO VIEWS ([id number]) INDICATIONS: SHORTNESS OF BREATH TECHNIQUE: 2 views of the chest were acquired. COMPARISON: [facility], CR, XR CHEST 2VW, 08/27/2016, 15:00. FINDINGS: Surgical changes and devices: None. Lungs and pleura: No pleural effusions or pneumothorax. Lungs are clear. Mediastinum: Mediastinal contours are normal. Heart size is normal. Bones and chest wall: No suspicious bony abnormalities. Soft tissues appear unremarkable. IMPRESSION: Negative chest. No acute cardiopulmonary process is evident. Dictated by: Gregg Varela M.D. on 09/15/2016 at 12:26 Approved by: Gregg Varela M.D. on 09/15/2016 at 12:26 PROCEDURE: X-RAY CHEST, TWO VIEWS ([id number]) INDICATIONS: Possibke Pneumonia vs CHF/Hypoxia TECHNIQUE: 2 views of the chest were acquired. COMPARISON: [facility], CT, CT ANGIO CHEST PE, 09/15/2016, 14:44. [facility], CR, XR CHEST 2VW, 09/15/2016, 12:59. FINDINGS: Surgical changes and devices: None. Lungs and pleura: No pleural effusions or pneumothorax. Lungs are clear. Mediastinum: Mediastinal contours are normal. Heart size is normal. Bones and chest wall: No suspicious bony abnormalities. Soft tissues appear unremarkable. IMPRESSION: No acute cardiopulmonary disease identified by plain film radiograph. Dictated by: Wallace Mulligan RRA Interpreted: Vikki Salazar MD on 09/16/2016 at 10:12 Transcribed by: TEJA on 09/16/2016 at 10:13 Approved by: Vikki Salazar MD, PhD on 09/16/2016 at 11:28 Cardiac Echo Impression Echocardiogram Report Name: AVINASH FREEMAN Da te: 09/18/2016 Height: 66 in Hospital Exam Location: [facility] Weight: 317 lb Gender: Female BSA: 2.4 m2 : 1980 Age: 36 yrs BP: 148/ 87 mmHg Reason For Study: SOB Ordering Physician: [facility]PITALIST [facility] Performed By: Quinton Camacho Referring Physician: HENRY AMAYA Interpretation Summary The left ventricle is normal in size, wall thickness, and systolic function without any focal wall motion abnormalities with the ejection fraction visually estimated to be 65-70%. Assessment of diastolic parameters indicates normal left ventricular diastolic function and normal filling pressures. The right ventricle is not well visualized but grossly appears normal in size with probable normal systolic function. Pulmonary artery pressures cannot be estimated because of the lack of a measurable TR jet velocity but the IVC suggests a low right atrial pressure of 3 mm Hg. Both atria are normal in size. There is no obvious significant valvular heart disease. Brief History The patient is a 36-year-old morbidly obese white female with a history of asthma, type II diabetes mellitus on insulin since 2002, hyperlipidemia and anxiety who began having shortness of breath 3 weeks ago. She went to urgent care 3 days ago and was diagnosed with pneumonia and mild intermittent asthma exacerbation and was prescribed azithromycin and prednisone which she has been taking. He states the prednisone was 50 mg a day which she decided to take and to divided doses because after she took her first 50 mg her sugar shot up to 671. She has been taking azithromycin 250 mg by mouth daily. Since being seen and treated in urgent care she states that her dyspnea had been getting worse. She also described having chest tightness, lightheadedness and dizziness. Patient also has had polyuria, polydipsia and her blood sugars have been in the 400s and 600s. Recently she has been having to use a bathroom every 10 minutes where she "dribbles" but does not have any pain associated with it. She has had urinary tract infections in the past and this feels much different. Patient has no fevers, however she does say that she has had chills and cold sweats that are not normal for her. She also has had some orthopnea which is new over the last 3 weeks. When her shortness of breath got quite severe today she called her primary care doctor who advised her to call 911. Patient called 911 and was taken to [facility] emergency room and was evaluated by Abimbola Alvarez who stated that the patient had increasing asthmatic wheezing as well as orthopnea failing outpatient treatment. Patient had significant respiratory difficulties throughout her emergency department stay despite aggressive treatment with fluids, nebulizers, steroids and magnesium therapies. Therefore, we decided that the patient would be admitted to the hospitalist service for further evaluation and treatment. Hospital Course The patient is a 36-year-old morbidly obese white female with a history of asthma, type II diabetes mellitus on insulin since 2002, hyperlipidemia and anxiety who began having shortness of breath 3 weeks ago. She went to urgent care 3 days ago and was diagnosed with pneumonia and mild intermittent asthma exacerbation and was prescribed azithromycin and prednisone which she has been taking. He states the prednisone was 50 mg a day which she decided to take and to divided doses because after she took her first 50 mg her sugar shot up to 671. She has been taking azithromycin 250 mg by mouth daily. Since being seen and treated in urgent care she states that her dyspnea had been getting worse. She also described having chest tightness, lightheadedness and dizziness. Patient also has had polyuria, polydipsia and her blood sugars have been in the 400s and 600s. Recently she has been having to use a bathroom every 10 minutes where she "dribbles" but does not have any pain associated with it. She has had urinary tract infections in the past and this feels much different. Patient has no fevers, however she does say that she has had chills and cold sweats that are not normal for her. She also has had some orthopnea which is new over the last 3 weeks. When her shortness of breath got quite severe today she called her primary care doctor who advised her to call 911. Patient called 911 and was taken to [facility] emergency room and was evaluated by Abimbola Alvarez who stated that the patient had increasing asthmatic wheezing as well as orthopnea failing outpatient treatment. Patient had significant respiratory difficulties throughout her emergency department stay despite aggressive treatment with fluids, nebulizers, steroids and magnesium therapies. Therefore, we decided that the patient would be admitted to the hospitalist service for further evaluation and treatment. # Acute on chronic respiratory failure, present at the time of admission. Active - She has history of asthma and now has an acute exacerbation possibly secondary to bronchitis as suggested by CT scan. Respiratory PCR panel was positive for adenovirus, so I suspect patient has an adenovirus infection, plus or minus a secondary bacterial infection. As patient appears to be responding to IV antibiotics and failed high-dose oral prednisone at home - Hypoxia secondary to above - We will continue Rocephin started in the emergency room. - Continue IV azithromycin which was started in the emergency room. - We have changed prednisone to Solu-Medrol. 125 mg of Solu-Medrol was given in the emergency room. We decreased her dose from 60 mg IV every 6 hours to 40 mg IV every 8 hours. Then we started prednisone 30 mg by mouth every morning on 09/18/2016 - We will continue SVN treatments with DuoNeb SVN every 6 hours and albuterol SVN every 2 hours when necessary. - Magnesium was given in the emergency room. # Dyspnea with exertion quite severe with heart rate jumping up to 160 today with exertion and the hallway. Patient felt quite ill afterward. - Patient and patient's mother concerned this could be cardiac in nature in addition to the above - Echocardiogram fails to show any explanation for the dyspnea on exertion. Therefore, I believe it is due to the current pulmonary infection with exacerbation of asthma. # Type II diabetes mellitus uncontrolled, present at the time of admission. Active and ongoing now better controlled with tapering doses of steroids - This is likely due to prednisone and Solu-Medrol therapy. This will improve with tapering doses of steroids. - We will continue home Lantus insulin and NovoLog will be replaced with Humalog. - We will check blood sugars before meals and at bedtime and provide aggressive sliding scale insulin coverage. - Patient to be on a diabetic diet. # Tobacco use despite active asthma. Present at the time of admission - Patient counseled on the cessation of tobacco. She agrees that she needs to quit. - We will try to quit when she has recovered. # Morbid obesity, present at this time of admission. Ongoing - Patient's BMI is 51.1 kg/m - Encouraged patient to seek possible gastric bypass surgery as an outpatient. - Continue diabetic diet. # Menorrhagia with irregular menstrual cycles - Patient is 1, para 0, M1 - Patient was encouraged to see an [employer] doctor for the evaluation of her irregular menses and possibly control. - Possible polycystic ovarian disease. 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 # History of major depression - Patient denies any suicidal ideation at present time. - Patient has a history of suicide attempt by cutting in the past. # Obstructive sleep apnea - Patient is running on having a sleep evaluation on 09/28/2016 Disposition: Patient is legally to be here for another 24 hours for the continued evaluation and treatment of the above conditions. Exam Vital Signs (Last) Date Time Temp Pulse Resp B/P Pulse Ox O2 Delivery O2 Flow Rate FiO2 09/19/16 11:30 92 18 96 Room Air 09/19/16 09:09 36.6 124/77 09/16/16 13:03 2.00 Exam General: Patient appears ill today after taking a walk.. She is laying supine with her head elevated approximately 30-45 and does not appear to be well.. HEENT: Head is atraumatic and normocephalic. Eyes: Pupils are equally round and reactive to light and accommodation. Extraocular muscles are intact. Sclera are white, anicteric. Subconjunctival mucosa is pink. Ears and nose are unremarkable. Oropharynx: There is no mucosal lesions, there is no thrush, there is no pharyngitis. Neck: Is supple, there are no nodes, or masses or tenderness. Chest: Patient is moving air in her lungs much better with decreased wheezing and breath sounds are much clearer. Heart: Rate, rhythm is regular. There is no new murmur, rub or gallop. Abdomen: Good bowel sounds are present. Abdomen is morbidly obese, soft, nontender, no organomegaly or masses were appreciated. Extremities: Are symmetrical and well perfused. There is no edema, there is no cellulitis, no rash. Neurologic: There are no focal neurological deficits. Cranial nerves II through XII are intact. There are no sensory or motor deficits. Psychiatric: Patients mood is calm and shows no sign of agitation. Genital: Deferred Rectal: Deferred Test 09/15/16 12:39 09/15/16 14:15 09/15/16 14:31 09/16/16 05:40 Hemoglobin A1c 9.2% (4.8-5.6) Lactic Acid Level 1.6mmol/L (0.4-2.0) Troponin T < 0.010ug/L (0.0-0.011) Urine Opiates Screen Negative Urine Methadone Screen Negative Urine Barbiturates Screen Negative Urine Amphetamines Screen Negative Urine Benzodiazepines Screen Negative Urine Cocaine Metabolite Screen Negative Urine Cannabinoids Screen Positive Urine Color Yellow (YELLOW) Urine Appearance Hazy (CLEAR,HAZY) Urine pH 5.5 (5.0-8.0) Urine Specific [place] 1.025 (1.003-1.035) Urine Protein Negativemg/dL (NEG,TRACE) Urine Glucose (UA) 1000mg/dL (NEGATIVE) Urine Ketones 40mg/dL (NEGATIVE) Urine Occult Blood Negative (NEGATIVE) Urine Nitrite Negative (NEGATIVE) Urine Bilirubin Negative (NEGATIVE) Urine Urobilinogen Normalmg/dL (NORMAL) Urine Leukocyte Esterase Negative (NEGATIVE) Urine RBC 0-2/hpf (0-2) Urine WBC 0-5/hpf (0-5) Urine Epithelial Cells Moderate/hpf (NONE-MOD) Urine Crystals None seen (NONE SEEN) Urine Bacteria Moderate/hpf (NONE-FEW) Urine Hyaline Casts None/lpf (NONE) Urine Granular Casts None seen (NONE SEEN) Urine Waxy Casts None seen (NONE SEEN) Urine Red Blood Cell Casts None seen (NONE SEEN) Urine White Blood Cell Casts None seen (NONE SEEN) Urine Mucus None seen (None Seen) Urine Trichomonas None seen (NONE SEEN) Urine Yeast None (NONE SEEN) Urinalysis Comment None Urine Culture Reflexed Indicated Urine HCG, Qualitative Negative (Negative) Pro-B-Type Natriuretic Peptide 53.05pg/mL (0-130) Procalcitonin 0.08ng/mL (0.00-0.08) Test 09/19/16 05:30 White Blood Count 14.1th/mm3 (3.8-10.1) Red Blood Count 4.67mil/mm3 (3.90-5.20) Hemoglobin 13.0g/dL (12.0-15.6) Hematocrit 38.5% (35.0-46.0) Mean Corpuscular Volume 82.4fL (81-100) Mean Corpuscular Hemoglobin 27.8pg (27.0-35.0) Mean Corpuscular Hemoglobin Concent 33.8% (32.0-37.0) Red Cell Distribution Width 14.1% (12.3-15.4) Platelet Count 252bil/L (150-400) Neutrophils (%) (Auto) 55.3% (40-74) Lymphocytes (%) (Auto) 35.4% (14-46) Monocytes (%) (Auto) 7.0% (4-12) Eosinophils (%) (Auto) 0.6% (0-5) Basophils (%) (Auto) 0.1% (0-3) Sodium Level 138mEq/L (134-144) Potassium Level 3.8mEq/L (3.5-5.2) Chloride Level 102mEq/L (97-108) Carbon Dioxide Level 21mmol/L (18-29) Blood Urea Nitrogen 13mg/dL (6-20) Creatinine 0.56mg/dL (0.57-1.00) Estimat Glomerular Filtration Rate 175mL/min (>59) Glucose Level 115mg/dL (60-99) Calcium Level 8.3mg/dL (8.5-10.1) Magnesium Level 2.0mg/dL (1.6-2.6) Total Bilirubin 0.2mg/dL (0.0-1.2) Aspartate Amino Transf (AST/SGOT) 11U/L (0-50) Alanine Aminotransferase (ALT/SGPT) 19U/L (0-32) Alkaline Phosphatase 71U/L (25-150) Total Protein 5.7g/dL (6.4-8.4) Albumin 3.7g/dL (3.4-5.0) Microbiology Results Urine cultures are pending. Discharge Medications Discharge Medications Acyclovir (Acyclovir) 400 Mg Tablet 400 MG PO QAM (Reported) Azithromycin (Zithromax) 250 Mg Tablet 250 MG PO DAILY (Reported) Cefdinir (Cefdinir) 300 Mg Capsule 300 MG PO BID Prescribed by: KARIME AMAYA MD Citalopram (Citalopram) 20 Mg Tablet 20 MG PO QAM (Reported) Fluticasone/Salmeterol (Advair 250-50 Diskus) 60 Puff/Inh Disk 1 PUFFS IH BID Prescribed by: KARIME AMAYA MD Insulin Aspart (NovoLOG U-100 Pen) 100 Unit/Ml Insuln.pen 30 UNITS SUBQ TIDWM ( Reported) Insulin Glargine (Lantus U100 Solostar Insulin Pen) 100 Unit/1 Ml Insuln.pen 70 UNITS SUBQ QAM (Reported) Ipratropium/Albuterol Sulfate (Iprat-Albut 0.5-3(2.5) mg/3 mL Inhalant Soln) 3 Ml Ampul.neb 3 ML NEB QIDRT Prescribed by: KARIME AMAYA MD Metformin (Metformin) 500 Mg Tablet 1,000 MG PO BIDWM (Reported) Omeprazole (Omeprazole) 40 Mg Capsule.dr 40 MG PO BIDWM (Reported) Pravastatin (Pravastatin) 20 Mg Tablet 20 MG PO QAM (Reported) Prednisone (PredniSONE) 5 Mg Tab 5 MG PO DAILY Take 6 tabs for 3 days then take 5 tabs for 3 days then take 4 tabs for 3 days then take 3 tabs for 3 days then take 2 tabs for 3 days then take 1 tab for 3 days then Stop Prescribed by: KARIME AMAYA MD Sucralfate (Sucralfate) 1 Gm Tablet 1 GM PO QID (Reported) As needed Albuterol HFA (Proair HFA) 8.5 Gm Hfa.aer.ad 2 PUFFS INHALATION Q4H PRN PRN For Shortness of Breath (Reported) Followup Plan Disposition: Vision is being discharged home in the care of her mother. Discharge Diet: Heart Healthy, Diabetic Discharge Activity: No restrictions (The patient may resume usual activities gradually as tolerated) Follow-up Provider: Yinka Melendez DO Follow-up with PCP in: 1 week Time spent Time spent on discharging this patient was greater than 35 minutes, over half of which was involved in counseling and coordination of care. Henry Amaya MD Sep 20, 2016 01:02
== END 2016-09-19 13:08 | disposition home or self-care (01) | DRG 189 ==
LOC: EDUNIT# 11:48 → SED 11:48 → EDBD 11:48 → MPC 16:59
PROVIDERS: ADMIT Internal Medicine Infectious Disease; ATTEND Internal Medicine Infectious Disease
DX: J96.21 Acute and chronic respiratory failure with hypoxia (principal); Z68.43 Body mass index [BMI] 50.0-59.9, adult; J45.901 Unspecified asthma with (acute) exacerbation; E66.01 Morbid (severe) obesity due to excess calories; Z71.3 Dietary counseling and surveillance; F17.210 Nicotine dependence, cigarettes, uncomplicated; B97.0 Adenovirus as the cause of diseases classified elsewhere; E11.65 Type 2 diabetes mellitus with hyperglycemia; Z79.4 Long term (current) use of insulin; E78.5 Hyperlipidemia, unspecified; G47.33 Obstructive sleep apnea (adult) (pediatric); J20.8 Acute bronchitis due to other specified organisms